=== PATIENT | female | born 1940 | race Caucasian/White ===

== ENCOUNTER → 2017-06-05 | Outpatient (CLI) | payer OTHER, MEDICAID ==
[~2017-06-05] MED LIST: ALDA25TA2; ALEVE; COENCAP; CORE6.25; FOLI1TAB; LISI20TA5; THERGRAN; TORS20TA2
[2017-06-05 15:58] LABS: BASO # 0.1 10^3/uL (0.0-0.2); BASO % 0.7 % (0.0-1.0); EOS # 0.2 10^3/uL (0.0-0.50); EOS % 2.7 % (0.0-3.0); IMMATURE GRANULOCYTE % 0.6 % (0-0); LYMPH # 2.2 10^3/uL (1.5-4.5); LYMPH % 25.8 % (24.0-44.0); MEAN CORPUSCULAR HEMOGLOBIN 29.7 pg (27.0-33.0); MEAN CORPUSCULAR HGB CONC 31.5 g/dl (32.0-36.5); MEAN CORPUSCULAR VOLUME 94.5 fl (80.0-96.0); MONO # 0.7 10^3/uL (0.0-0.8); MONO % 8.4 % (0.0-5.0); NEUTROPHILS # 5.3 10^3/uL (1.8-7.7); NEUTROPHILS % 61.8 % (36.0-66.0); PLATELET COUNT, AUTOMATED 208 10^3/uL (150-450); RED CELL DISTRIBUTION WIDTH 13.2 % (11.5-14.5); WHITE BLOOD COUNT 8.5 10^3/uL (4.0-10.0)
[2017-06-05 16:17] LABS: ALBUMIN 3.3 GM/DL (3.2-5.2); ALBUMIN/GLOBULIN RATIO 0.92 (1.00-1.93); BILIRUBIN,TOTAL 0.3 MG/DL (0.2-1.0); CALCIUM LEVEL 8.9 MG/DL (8.8-10.2); CREATININE FOR GFR 1.09 MG/DL (0.55-1.02); GLOMERULAR FILTRATION RATE 51.7 (>39); POTASSIUM SERUM 4.7 MEQ/L (3.5-5.1); TOTAL PROTEIN 6.9 GM/DL (6.4-8.2)
== END ==
LOC: M WUC 12:58
PROVIDERS: ATTEND Family Medicine
DX: I50.20 Unspecified systolic (congestive) heart failure (principal)

== ENCOUNTER → 2019-06-18 | Outpatient (REF) | payer OTHER, MEDICAID, MEDICARE ==
[2019-06-18 17:12] LABS: BASO # 0.1 10^3/uL (0.0-0.2); BASO % 0.6 % (0.0-1.0); EOS # 0.3 10^3/uL (0.0-0.5); HEMATOCRIT 41.5 % (36.0-47.0); HEMOGLOBIN 13.3 g/dl (12.0-15.5); LYMPH # 2.2 10^3/uL (1.5-5.0); LYMPH % 25.7 % (24.0-44.0); MEAN CORPUSCULAR HEMOGLOBIN 30.5 pg (27.0-33.0); MEAN CORPUSCULAR VOLUME 95.2 fl (80.0-96.0); MONO # 0.7 10^3/uL (0.0-0.8); MONO % 8.4 % (0.0-5.0); NEUTROPHILS # 5.2 10^3/uL (1.5-8.5); NEUTROPHILS % 61.8 % (36.0-66.0); PLATELET COUNT, AUTOMATED 233 10^3/uL (150-450); RED BLOOD COUNT 4.36 10^6/uL (4.00-5.40); WHITE BLOOD COUNT 8.4 10^3/uL (4.0-10.0)
[2019-06-18 17:53] LABS: ALBUMIN 3.5 GM/DL (3.2-5.2); BILIRUBIN,TOTAL 0.4 MG/DL (0.2-1.0); CREATININE FOR GFR 1.54 MG/DL (0.55-1.30); GLOMERULAR FILTRATION RATE 34.5 (>32); POTASSIUM SERUM 4.9 MEQ/L (3.5-5.1); TOTAL PROTEIN 7.3 GM/DL (6.4-8.2)
== END ==
LOC: M LABDRAW1 15:58
PROVIDERS: ATTEND Family Medicine
DX: I50.20 Unspecified systolic (congestive) heart failure (principal)

== ENCOUNTER 2021-04-06 21:01 | Inpatient (IN) | payer MEDICARE, MEDICAID ==
[~2021-04-06] VITALS: Ht 165.1 cm; Wt 83.1 kg
[2021-04-06] MEDS ORDERED: TORS10TA3 (21:27)
[2021-04-06] MEDS ORDERED: FOLI1TAB11 (21:27)
[2021-04-06] MEDS ORDERED: CARV6.25 (21:27)
[2021-04-06] MEDS ORDERED: LISI10TA22 (21:27)
[2021-04-06 22:51] LABS: BASO % 0.4 % (0.0-1.0); EOS # 0.2 10^3/uL (0.0-0.5); HEMOGLOBIN 13.2 g/dl (12.0-15.5); LYMPH # 1.7 10^3/uL (1.5-5.0); MEAN CORPUSCULAR HEMOGLOBIN 36.9 pg (27.0-33.0); MEAN CORPUSCULAR VOLUME 111.7 fl (80.0-96.0); MONO # 0.5 10^3/uL (0.0-0.8); MONO % 7.8 % (2.0-8.0); NEUTROPHILS # 4.3 10^3/uL (1.5-8.5); NEUTROPHILS % 63.1 % (36.0-66.0); RED BLOOD COUNT 3.58 10^6/uL (4.00-5.40); WHITE BLOOD COUNT 6.8 10^3/uL (4.0-10.0)
[2021-04-06 23:29] LABS: RSV AMPLIFICATION NEGATIVE (NEGATIVE)
--- NOTE | 2021-04-06 23:44 | REPVR ---
PROCEDURE INFORMATION: Exam: XR Chest Exam date and time: 04/06/2021 10:55 PM Age: 80 years old Clinical indication: Pain; Other: Not spcified; Additional info: Chest pain TECHNIQUE: Imaging protocol: XR of the chest. Views: 1 view. COMPARISON: No relevant prior studies available. FINDINGS: Limitations: Limited by patient's body habitus. Lungs: Dependent subsegmental pulmonary atelectasis. Pleural spaces: Unremarkable. No pleural effusion. No pneumothorax. Heart/Mediastinum: Mild cardiac enlargement. Bones/joints: Unremarkable. IMPRESSION: 1. Dependent subsegmental pulmonary atelectasis. 2. Mild cardiac enlargement. Electronically signed by: Ángel Zamorano On 04/06/2021 23:43:52 PM
[2021-04-07] VITALS (16 sets, daily range): BP systolic 114–201; BP diastolic 56–84
[2021-04-07] MEDS ORDERED: TORS10TA3 PO (00:05)
[2021-04-07] MEDS ORDERED: HOME MED LIST COMPLETE! XX SCH (00:05)
[2021-04-07] MEDS ORDERED: FOLI1TAB11 PO (00:05)
[2021-04-07] MEDS ORDERED: COMB0.2S OS (00:05)
[2021-04-07] MEDS ORDERED: CARV6.25 PO (00:05)
[2021-04-07] MEDS ORDERED: LISI10TA22 PO (00:05)
[2021-04-07] MEDS ORDERED: MURO5OIN OS (00:05)
[2021-04-07] MEDS ORDERED: PRED1SUS2 OS (00:05)
[2021-04-07 00:06] LABS: ALBUMIN 3.5 GM/DL (3.2-5.2); ALT/SGPT 15 U/L (12-78); BILIRUBIN,DIRECT < 0.1 MG/DL (0.0-0.2); BILIRUBIN,TOTAL 0.3 MG/DL (0.2-1.0); BLOOD UREA NITROGEN 37 MG/DL (7-18); CALCIUM LEVEL 8.8 MG/DL (8.8-10.2); CARBON DIOXIDE LEVEL 24 MEQ/L (21-32); CHLORIDE LEVEL 111 MEQ/L (98-107); CK-MB VALUE MASS < 1.0 NG/ML (<3.6); CPK CREATINE PHOSPHOKINASE 39 U/L (26-192); FREE T4 1.08 NG/DL (0.76-1.46); GLOMERULAR FILTRATION RATE 30.7 (>32); GLUCOSE, FASTING 85 MG/DL (70-100); LIPASE 218 U/L (73-393); MB/CK RELATIVE INDEX 2.56 (< OR =4); NT-PRO BNP 926 PG/ML (<450); POTASSIUM SERUM 5.6 MEQ/L (3.5-5.1); SODIUM LEVEL 142 MEQ/L (136-145); TOTAL PROTEIN 7.3 GM/DL (6.4-8.2); TROPONIN I 0.06 NG/ML (< 0.10)
--- NOTE | 2021-04-07 01:48 | HPEPDOC ---
[facility] Medical History & Physical Date of Admission Apr 07, 2021 Date of Service: Apr 07, 2021 History and Physical CHIEF COMPLAINT: Dizziness HISTORY OF PRESENT ILLNESS: 80-year-old female history of congestive heart failure, hypertension, chronic kidney disease who presents to the emergency department with her daughter complaining of dizziness on and off for the past several weeks. She says she feels dizzy as though she is going to pass out but she never actually lost consciousness any point nor had any falls. Upon arrival to the emergency department she was found to have bradycardia heart rate down in the 30s. She takes Coreg at home as well as eye drops which contain timolol. Patient denies any chest pain or palpitations and is shortness of breath denies fevers or chill denies nausea or vomiting she does endorse on review of systems a mild headache as well as dysuria. 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 Vazquez however she hasn't followed up with him in what her daughter believes to be more than 10 years. She states that she follows up with her primary care physician approximately every [address] Silva discussed her case with Dr. Fernandez who recommended admission and cardiac monitoring and holding off on her beta blockers. Patient will be admitted for symptomatic bradycardia to the ICU for close monitoring. When I saw the patient in the emergency department it appeared as though her heart rate had improved she was always between a heart rate of 45- 55 however on a few occasions she did drop to 37. PAST MEDICAL/SURGICAL HISTORY: Hypertension Congestive heart failure Chronic kidney disease Tension-type headaches Osteoarthritis of knees Cholecystectomy when she was 18 Multiple left foot surgeries due to broken toes Cataract surgery SOCIAL HISTORY: Denies alcohol use Continues to smoke 1 pack per day daily and has smoked for a very long time can't tell me exactly how long. Denies illicit drug use FAMILY HISTORY: Reviewed and none contributory to this admission ALLERGIES: Please see below. REVIEW OF SYSTEMS: 10 point review of systems complete all negative otherwise stated in HPI HOME MEDICATIONS: Please see below. PHYSICAL EXAMINATION: Constitutional: Awake and alert, in no apparent distress ENT: Sclera are clear. Mucosa is moist. Respiratory: Lungs CTA bilaterally. No respiratory distress. Cardiovascular: Slow heart rate no murmurs appreciated. Heart rate was 52 on the monitor. Gastrointestinal: Abdomen is soft, non distended, non tender, BS present. Musculoskeletal: No lower extremity edema. Neurologic: No focal neurological deficit. Mental Status: A&O x3, normal affect Skin: No visible rashes LABORATORY DATA: See below. IMAGING: See chart MICROBIOLOGY: Please see below. ASSESSMENT/PLAN 80-year-old female presents with dizziness found to have symptomatic bradycardia admitted to the ICU for close monitoring. # Bradycardia: Initially dizzy now asymptomatic. Dr Fernandez suggested holding all BBs and close monitoring. Admit to ICU with cardiac monitoring. Coreg and eye drops containing timolol stopped. PT eval once HR improves. Morning team to consider formal cardiology consult if HR doesn't improve without BB. Fu echo. ordered Magnesium level. Check TSH. # HTN: labile. Monitor closely. Lisinopril and coreg on hold. Gave her 1 dose amlodipine. Add medications/titrate as appropriate. # CKD: unclear if there is an JERONIMO vs progression of CKD. Repeat BMP in the morning. Hold lisinopril. Avoid nephrotoxins. # CHF: compensated. Resumed appropriate home meds. # Hyperkalemia: k5.6. Monitor. # Smoker: Counseled to quit. Nicotine patch. # Obesity: BMI 29.3. Complicates care. # DVT prophylaxis: Heparin A Yousef Hospitalist Vital Signs Vital Signs Date Time Temp Pulse Resp B/P (MAP) Pulse Ox O2 Delivery O2 Flow Rate FiO2 04/07/21 01:08 44 16 184/77 (112) 96 Room Air 04/06/21 21:03 99.0 Laboratory Data Labs 24H Laboratory Tests 2 04/06/21 22:41: Immature Granulocyte % (Auto) 0.7, Neutrophils (%) (Auto) 63.1, Lymphocytes (%) (Auto) 25.0, Monocytes (%) (Auto) 7.8, Eosinophils (%) (Auto) 3.0, Basophils (%) (Auto) 0.4, Neutrophils # (Auto) 4.3, Lymphocytes # (Auto) 1.7, Monocytes # (Auto) 0.5, Eosinophils # (Auto) 0.2, Basophils # (Auto) 0.0, Nucleated Red Blood Cells % (auto) 0.0, Coronavirus (COVID-19)(PCR) NEGATIVE, Influenza Type A (RT-PCR) NEGATIVE, Influenza Type B (RT-PCR) NEGATIVE, Respiratory Syncytial Virus (PCR) NEGATIVE 04/06/21 23:22: Urine Color YELLOW, Urine Appearance HAZY, Urine pH 5.0, Urine Specific [place] 1.010, Urine Protein NEGATIVE, Urine Glucose (UA) NEGATIVE, Urine Ketones NEGATIVE, Urine Blood 1+H, Urine Nitrite NEGATIVE, Urine Bilirubin NEGATIVE, Urine Urobilinogen 0.2, Urine Leukocyte Esterase 2+H, Urine WBC (Auto) 9H, Urine RBC (Auto) 2, Urine Hyaline Casts (Auto) 0, Urine Bacteria (Auto) 2+H, Urine Squamous Epithelial Cells 1, Urine Mucus (Auto) SMALL, Urine Sperm (Auto) , Anion Gap 7L, Glomerular Filtration Rate 30.7L, Calcium Level 8.8, Total Bilirubin 0.3, Direct Bilirubin < 0.1, Aspartate Amino Transf (AST/SGOT) 13, Alanine Aminotransferase (ALT/SGPT) 15, Alkaline Phosphatase 86, Total Creatine Kinase 39, Creatine Kinase MB < 1.0, Creatine Kinase MB Relative Index 2.56, Troponin I 0.06, FH-Bih-G-Type Natriuretic Peptide 926H, Total Protein 7.3, Albumin 3.5, Albumin/Globulin Ratio 0.9L, Lipase 218, Thyroid Stimulating Horm one (TSH) 1.050, Free Thyroxine 1.08 CBC/BMP Laboratory Tests 04/06/21 22:41 04/06/21 23:22 Microbiology Microbiology 04/06/21 Urine Culture, Received Pending Home Medications Scheduled Brimonidine Tartrate/Timolol (Combigan 0.2%-0.5% Eye Drops) 5 Ml Drops, 1 DROP OS BID Carvedilol (Carvedilol) 6.25 Mg Tablet, 6.25 MG PO BID Folic Acid (Folic Acid) 1 Mg Tablet, 1 MG PO DAILY Lisinopril (Lisinopril) 10 Mg Tablet, 5 MG PO QHS Prednisolone Acetate (Pred Forte 1% Opth Susp) 5 Ml Drops.susp, 1 DROP OS QID Sodium Chloride (Elise-128) 5% Oint...g., 1 DOSE OS QHS Torsemide (Torsemide) 10 Mg Tablet, 10 MG PO DAILY Allergies Coded Allergies: No Known Allergies (Verified , 04/06/21) GORGE HARRIS MD Apr 07, 2021 01:48
[2021-04-07] MEDS ORDERED: NICOTINE 21MG/24HR 1 EA TRANSDERMAL TD ONE (02:00)
[2021-04-07] MEDS ORDERED: amLODIPine 5 MG TAB PO ONE (02:15)
[2021-04-07 04:24] LABS: MAGNESIUM LEVEL 2.5 MG/DL (1.8-2.4)
[2021-04-07 05:30] LABS: HEMATOCRIT 37.7 % (36.0-47.0); HEMOGLOBIN 12.4 g/dl (12.0-15.5); MEAN CORPUSCULAR HEMOGLOBIN 36.4 pg (27.0-33.0); MEAN CORPUSCULAR HGB CONC 32.9 g/dl (32.0-36.5); MEAN CORPUSCULAR VOLUME 110.6 fl (80.0-96.0); PLATELET COUNT, AUTOMATED 110 10^3/uL (150-450); RED BLOOD COUNT 3.41 10^6/uL (4.00-5.40); WHITE BLOOD COUNT 6.4 10^3/uL (4.0-10.0)
[2021-04-07 06:02] LABS: ALBUMIN 3.4 GM/DL (3.2-5.2); BILIRUBIN,TOTAL 0.3 MG/DL (0.2-1.0); CALCIUM LEVEL 8.7 MG/DL (8.8-10.2); CREATININE FOR GFR 1.58 MG/DL (0.55-1.30); GLOMERULAR FILTRATION RATE 33.4 (>32); MAGNESIUM LEVEL 2.5 MG/DL (1.8-2.4); TOTAL PROTEIN 6.4 GM/DL (6.4-8.2)
--- NOTE | 2021-04-07 06:03 | ECGEPIP ---
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
[2021-04-07] MEDS ORDERED: HEPARIN SOD (PORCINE) 5000UNITS/ML 1ML VIAL/SYRINGE SC SCH (09:00)
[2021-04-07] MEDS ORDERED: NICOTINE 14 MG/24 HR TRANSDERMAL TD ONE (09:15)
[2021-04-07] MEDS: TORSEMIDE 10 MG TABLET PO SCH (09:27)
[2021-04-07] MEDS: FOLIC ACID 1 MG TAB PO SCH (12:23)
--- NOTE | 2021-04-07 13:14 | ECGEPIP ---
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
[2021-04-07] MEDS ORDERED: lisinopriL 5 MG TAB PO SCH (21:00)
[2021-04-08] VITALS: BP 170/77
[2021-04-08 04:00] VITALS: BP 157/68
[2021-04-08 04:50] LABS: HEMATOCRIT 36.8 % (36.0-47.0); MEAN CORPUSCULAR HEMOGLOBIN 36.1 pg (27.0-33.0); MEAN CORPUSCULAR HGB CONC 32.6 g/dl (32.0-36.5); MEAN CORPUSCULAR VOLUME 110.8 fl (80.0-96.0); PLATELET COUNT, AUTOMATED 109 10^3/uL (150-450); RED BLOOD COUNT 3.32 10^6/uL (4.00-5.40); WHITE BLOOD COUNT 5.2 10^3/uL (4.0-10.0)
[2021-04-08 05:12] LABS: CALCIUM LEVEL 8.2 MG/DL (8.8-10.2); CREATININE FOR GFR 1.91 MG/DL (0.55-1.30); GLOMERULAR FILTRATION RATE 26.8 (>32); MAGNESIUM LEVEL 2.4 MG/DL (1.8-2.4); POTASSIUM SERUM 5.2 MEQ/L (3.5-5.1)
[2021-04-08 07:26] VITALS: BP 167/77
[2021-04-08] MEDS: TORSEMIDE 10 MG TABLET PO SCH (08:25)
[2021-04-08] MEDS: FOLIC ACID 1 MG TAB PO SCH (08:25)
[2021-04-08] MEDS ORDERED: NICOTINE 14 MG/24 HR TRANSDERMAL TD SCH (09:00)
[2021-04-08] MEDS ORDERED: AMLO10TA PO (11:17)
[2021-04-08] MEDS ORDERED: ISOS10TAB PO (11:20)
[2021-04-08] MEDS ORDERED: SELF1KIT MC (11:21)
[2021-04-08 17:07] LABS: Lyme Disease IgG/IgM Antibodie <0.91 ISR (0.00-0.90); Lyme Disease IgM Ab Quantitati <0.80 index (0.00-0.79)
--- NOTE | 2021-04-09 08:22 | DSES ---
DISCHARGE SUMMARY DATE OF ADMISSION: 04/06/2021 DATE OF DISCHARGE: 04/08/2021 PRIMARY DISCHARGE DIAGNOSIS: 1. Symptomatic bradycardia secondary to Timolol and Coreg induced bradycardia. 2. Congestive heart failure, compensated. 3. Chronic kidney disease Stage III. 4. Hypertension. 5. Tension headaches. 6. Recent cataract surgery with Timolol induced bradycardia. 7. Chronic osteoarthritis of bilateral knees. DISCHARGE MEDICATIONS: 1. Folic acid 1 mg daily. 2. Lisinopril was discontinued due to hyperkalemia. 3. Prednisone eyedrops OS q.i.d. 4. Sodium chloride eyedrops OS, q.h.s. 5. Torsemide 10 daily. 6. Norvasc 10 mg daily. DISCHARGE INSTRUCTIONS: Patient was instructed not to take her Coreg as well as her Timolol eyedrops secondary to bradycardia with complaints of dizziness due to Coreg and Timolol. Primary care physician appointment within five days of discharge for adjustment of blood pressure medications. Patient is to see her promotions assistant sales marketing to ask for alternative eyedrops due to Timolol induced bradycardia requiring hospitalization. HOSPITAL COURSE: This is an 80-year-old female with a history of hypertension on chronic Coreg who recently had eye surgery and was given Timolol eyedrops, presented with symptomatic bradycardia with a heart rate into the 35 to 45 range and complaints of dizziness. Per Emergency Room physician, Dr. Vazquez discussed the case with Dr. Johnson, township supervisor on-call. Recommendations were to admit the patient for cardiac monitoring, hold off on Coreg and hold off on the patient's Timolol. While sleeping, the patient's heart rate does decrease down to 36 to 39. She had stable vital signs with blood pressure of 145 to 160 systolic and no syncopal episodes. Patient's cardiac markers were negative. She was initially hyperkalemic with potassium of 5.6 which was treated with Kayexalate. She remained with Stage III to IV renal failure. The patient was instructed to see her primary care physician and promotions assistant sales marketing within five days of hospital discharge. PHYSICAL EXAMINATION ON DISCHARGE: Temperature is 96.9, pulse 46, respiratory rate 16, blood pressure is 167/77, 96% on room air. In general, patient is awake, alert and oriented to herself, answering questions appropriately. No distress. Face is symmetric. Lungs are clear to auscultation. No wheezing. Heart is S1 and S2, sinus bradycardia. Abdomen is soft, nontender and nondistended. Positive bowel sounds. Extremities: No cyanosis or clubbing. LABORATORY DATA: See below. TIME SPENT ON DISCHARGE: 30 minutes MTDD
== END 2021-04-08 09:41 | disposition home or self-care (01) | DRG 309 ==
LOC: M ED 21:01 → M ED INP 21:02 → M ICU 04-07 03:05
PROVIDERS: ADMIT Family Medicine; ATTEND General Practice
DX: R00.1 Bradycardia, unspecified (principal); I13.0 Hypertensive heart and chronic kidney disease with heart failure and stage 1 through stage 4 chronic kidney disease, or unspecified chronic kidney disease; I50.9 Heart failure, unspecified; N18.30 Chronic kidney disease, stage 3 unspecified; M17.0 Bilateral primary osteoarthritis of knee; G44.209 Tension-type headache, unspecified, not intractable; Z98.49 Cataract extraction status, unspecified eye; Z90.49 Acquired absence of other specified parts of digestive tract; F17.200 Nicotine dependence, unspecified, uncomplicated; Z20.822 Contact with and (suspected) exposure to COVID-19; Z79.899 Other long term (current) drug therapy; T44.6X5A Adverse effect of alpha-adrenoreceptor antagonists, initial encounter; T44.7X5A Adverse effect of beta-adrenoreceptor antagonists, initial encounter

== ENCOUNTER 2021-06-17 14:10 | Emergency (ER) | payer MEDICARE, MEDICAID ==
[~2021-06-17 14:10] MED LIST changes: +AMLO10TA PO; +CARV6.25; +CARV6.25 PO; +COMB0.2S OS; +FOLI1TAB11; +FOLI1TAB11 PO; +ISOS10TAB PO; +LISI10TA22; +LISI10TA22 PO; +MURO5OIN OS; +PRED1SUS2 OS; +SELF1KIT MC; +TORS10TA3; +TORS10TA3 PO
--- NOTE | 2021-06-17 15:49 | REP ---
INDICATION: Altered Mental Status. COMPARISON: Multiple the latest 04/06/2021 also portable TECHNIQUE: Portable FINDINGS: The technique utilized in obtaining the radiograph has magnified the cardiac silhouette and accentuated the interstitial markings. There is cardiomegaly accentuated by technique status quo. Subtle curvilinear densities have developed in the right lung base. In the left lower lobe there is a discoid opacity. The lung campbell are otherwise clear and unchanged. There is no change in the osseous structures. IMPRESSION: 1. Cardiomegaly 2. Likely bilateral subsegmental atelectatic changes. <Electronically signed by Dimitris Daniels > 06/17/21 [id number]
[2021-06-17 16:52] LABS: HEMATOCRIT 40.4 % (36.0-47.0); HEMOGLOBIN 13.2 g/dl (12.0-15.5); MEAN CORPUSCULAR HEMOGLOBIN 34.7 pg (27.0-33.0); MEAN CORPUSCULAR HGB CONC 32.7 g/dl (32.0-36.5); MEAN CORPUSCULAR VOLUME 106.3 fl (80.0-96.0); PLATELET COUNT, AUTOMATED 181 10^3/uL (150-450); WHITE BLOOD COUNT 8.2 10^3/uL (4.0-10.0)
--- NOTE | 2021-06-17 16:54 | REP ---
INDICATION: confusion COMPARISON: None. TECHNIQUE: Axial noncontrast images from the skull base to the thoracic inlet with coronal reformations. This CT examination was performed using the following dose reduction techniques: Automated exposure control, adjustment of mA and/or kv according to the patient's size, and use of iterative reconstruction technique. FINDINGS: Atrophy with periventricular leukomalacia and microvascular ischemic changes are appreciated. Encephalomalacia involving the right parieto-occipital lobe consistent with old infarction. The ventricles and sulci are symmetric. Sandoval-white differentiation is maintained. There is no evidence for acute intracranial hemorrhage, mass/mass effect, pathology or infarction. No extra-axial fluid collection. Calvarium is intact. Paranasal sinuses and mastoid air cells are clear. IMPRESSION: Atrophy and microvascular ischemic changes. 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 No acute intracranial hemorrhage, infarction, or mass/mass effect. <Electronically signed by Rocky Bailey > 06/17/21 [id number]
[2021-06-17 17:01] LABS: BILIRUBIN,TOTAL 0.3 MG/DL (0.2-1.0); CALCIUM LEVEL 7.9 MG/DL (8.8-10.2); CREATININE FOR GFR 1.69 MG/DL (0.55-1.30); GLOMERULAR FILTRATION RATE 30.8 (>32); POTASSIUM SERUM 5.3 MEQ/L (3.5-5.1); THYROID STIMULATING HORMONE 0.693 uIU/ML (0.358-3.740); TOTAL PROTEIN 6.6 GM/DL (6.4-8.2)
[2021-06-17 17:52] VITALS: BP 150/93
--- NOTE | 2021-06-18 08:21 | ECGEPIP ---
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
== END 2021-06-17 18:03 | disposition home or self-care (01) ==
LOC: M ED 14:10
DX: R41.0 Disorientation, unspecified (principal); Z86.73 Personal history of transient ischemic attack (TIA), and cerebral infarction without residual deficits; I45.19 Other right bundle-branch block; I51.7 Cardiomegaly; I50.9 Heart failure, unspecified; I10 Essential (primary) hypertension; F17.200 Nicotine dependence, unspecified, uncomplicated; Z79.899 Other long term (current) drug therapy

== ENCOUNTER 2021-07-27 10:34 | Observation (INO) | payer MEDICARE, MEDICAID ==
[~2021-07-27] VITALS: Ht 165.1 cm; Wt 79.3 kg
[2021-07-27 11:15] LABS: BASO % 0.3 % (0.0-1.0); EOS # 0.1 10^3/uL (0.0-0.5); EOS % 1.7 % (0.0-3.0); HEMATOCRIT 37.7 % (36.0-47.0); HEMOGLOBIN 12.6 g/dl (12.0-15.5); LYMPH # 1.4 10^3/uL (1.5-5.0); LYMPH % 20.8 % (24.0-44.0); MEAN CORPUSCULAR HEMOGLOBIN 34.1 pg (27.0-33.0); MEAN CORPUSCULAR HGB CONC 33.4 g/dl (32.0-36.5); MEAN CORPUSCULAR VOLUME 102.2 fl (80.0-96.0); MONO # 0.3 10^3/uL (0.0-0.8); MONO % 4.9 % (2.0-8.0); NEUTROPHILS # 4.6 10^3/uL (1.5-8.5); NEUTROPHILS % 71.5 % (36.0-66.0); PLATELET COUNT, AUTOMATED 146 10^3/uL (150-450); RED BLOOD COUNT 3.69 10^6/uL (4.00-5.40); WHITE BLOOD COUNT 6.5 10^3/uL (4.0-10.0)
[2021-07-27 11:26] LABS: INR 1.04
[2021-07-27] MEDS: NS 1,000 ML IV SCH ×2 (11:29→21:51)
[2021-07-27] MEDS ORDERED: ISOS1TAB12 PO (11:47)
[2021-07-27] MEDS ORDERED: AMLO1TAB25 PO (11:47)
[2021-07-27] MEDS ORDERED: HOME MED LIST COMPLETE! XX SCH (11:50)
[2021-07-27 11:51] LABS: ACETAMINOPHEN LEVEL < 2.0 UG/ML (10.0-30.0); ALBUMIN 3.3 GM/DL (3.2-5.2); ALT/SGPT 12 U/L (12-78); BILIRUBIN,DIRECT 0.2 MG/DL (0.0-0.2); BILIRUBIN,TOTAL 0.5 MG/DL (0.2-1.0); ETHYL ALCOHOL (ETHANOL) < 0.003 % (0.000-0.010); LIPASE 123 U/L (73-393); NT-PRO BNP 460 PG/ML (<450); SALICYLATE LEVEL < 1.7 MG/DL (5.0-30.0); TOTAL PROTEIN 6.4 GM/DL (6.4-8.2)
[2021-07-27 12:05] LABS: RSV AMPLIFICATION NEGATIVE (NEGATIVE)
[2021-07-27 12:05] LABS: ABG HCO3 18.5 MEQ/L (22.0-26.0); ABG O2 SATURATION 98.1 % (95.0-99.0); ABG PARTIAL PRESSURE CO2 33.4 mmHg (35.0-45.0); ABG PARTIAL PRESSURE O2 111.3 mmHg (75.0-100.0); ABG STANDARD HCO3 19.6 MEQ/L (22.0-26.0); ABG TOTAL CO2 19.6 MEQ/L (23.0-31.0); ABG pH (ARTERIAL) 7.362 UNITS (7.350-7.450)
[2021-07-27 14:31] LABS: FERRITIN 109 NG/ML (8-252); IRON (FE) 64 UG/DL (50-170); PERCENT SATURATION 24.3 % (13.2-45.0); TOTAL IRON BINDING CAPACITY 263 UG/DL (250-450)
[2021-07-27 14:47] LABS: FOLATE > 24.0 NG/ML (>5.4); VITAMIN B12 LEVEL 79 PG/ML (247-911)
[2021-07-27 17:55] VITALS: BP 142/80
[2021-07-27 20:58] VITALS: BP 138/76
[2021-07-27] MEDS: ISOSORBIDE MONONITRATE 10MG TABLET PO SCH (21:51)
[2021-07-28 05:48] VITALS: BP 135/63
[2021-07-28 06:45] LABS: HEMATOCRIT 31.1 % (36.0-47.0); MEAN CORPUSCULAR HEMOGLOBIN 33.7 pg (27.0-33.0); MEAN CORPUSCULAR HGB CONC 33.1 g/dl (32.0-36.5); MEAN CORPUSCULAR VOLUME 101.6 fl (80.0-96.0); PLATELET COUNT, AUTOMATED 134 10^3/uL (150-450); RED BLOOD COUNT 3.06 10^6/uL (4.00-5.40); WHITE BLOOD COUNT 5.9 10^3/uL (4.0-10.0)
[2021-07-28 06:50] LABS: HEMOGLOBIN 10.3 g/dl (12.0-15.5)
[2021-07-28 07:01] LABS: ALBUMIN 2.7 GM/DL (3.2-5.2); BILIRUBIN,TOTAL 0.5 MG/DL (0.2-1.0); CALCIUM LEVEL 8.2 MG/DL (8.8-10.2); CREATININE FOR GFR 1.45 MG/DL (0.55-1.30); GLOMERULAR FILTRATION RATE 36.8 (>32); MAGNESIUM LEVEL 2.3 MG/DL (1.8-2.4); PHOSPHORUS LEVEL 3.5 MG/DL (2.5-4.9); POTASSIUM SERUM 4.1 MEQ/L (3.5-5.1); TOTAL PROTEIN 5.9 GM/DL (6.4-8.2)
[2021-07-28] MEDS: NS 1,000 ML IV SCH ×3 (07:05→23:11)
[2021-07-28 09:00] VITALS: BP 135/63
[2021-07-28 10:00] VITALS: BP 135/68
[2021-07-28 10:35] VITALS: BP_SYST 101; BP_SYST 129; BP_SYST 138; BP_DIAS 53; BP_DIAS 66; BP_DIAS 74
[2021-07-28] MEDS: ENOXAPARIN 30MG/0.3ML SYRINGE (J1650 PER 10MG) SC SCH (10:36)
[2021-07-28] MEDS: FOLIC ACID 1 MG TAB PO SCH (10:37)
[2021-07-28] MEDS: ISOSORBIDE MONONITRATE 10MG TABLET PO SCH (10:37)
[2021-07-28] MEDS ORDERED: NS 500 ML IV ONE (11:10)
[2021-07-28 14:00] VITALS: BP 142/69
[2021-07-28 22:00] VITALS: BP_SYST 130; BP_SYST 133; BP_SYST 140; BP_DIAS 61; BP_DIAS 62; BP_DIAS 67
[2021-07-28] MEDS: cefTRIAXone SOD 1 GM in D5W MINI-BAG PLUS 50 ML IV SCH (23:11)
[2021-07-29 02:00] VITALS: BP 125/73
[2021-07-29 06:00] VITALS: BP 134/77
[2021-07-29 06:38] LABS: HEMOGLOBIN 10.8 g/dl (12.0-15.5); MEAN CORPUSCULAR HEMOGLOBIN 34.2 pg (27.0-33.0); MEAN CORPUSCULAR HGB CONC 32.7 g/dl (32.0-36.5); MEAN CORPUSCULAR VOLUME 104.4 fl (80.0-96.0); PLATELET COUNT, AUTOMATED 123 10^3/uL (150-450); RED BLOOD COUNT 3.16 10^6/uL (4.00-5.40); WHITE BLOOD COUNT 4.9 10^3/uL (4.0-10.0)
[2021-07-29 07:07] LABS: CALCIUM LEVEL 7.8 MG/DL (8.8-10.2); CREATININE FOR GFR 1.28 MG/DL (0.55-1.30); GLOMERULAR FILTRATION RATE 42.5 (>32); MAGNESIUM LEVEL 2.2 MG/DL (1.8-2.4); POTASSIUM SERUM 4.2 MEQ/L (3.5-5.1)
[2021-07-29] MEDS ORDERED: amLODIPine 5 MG TAB PO SCH (09:00)
[2021-07-29] MEDS: FOLIC ACID 1 MG TAB PO SCH (10:40)
[2021-07-29] MEDS: ENOXAPARIN 30MG/0.3ML SYRINGE (J1650 PER 10MG) SC SCH (10:40)
[2021-07-29] MEDS: lisinopriL 5 MG TAB PO SCH (10:40)
[2021-07-29 14:00] VITALS: BP 152/90
[2021-07-29 22:00] VITALS: BP 160/90
[2021-07-29] MEDS: cefTRIAXone SOD 1 GM in D5W MINI-BAG PLUS 50 ML IV SCH (22:11)
[2021-07-30 06:00] VITALS: BP 148/82
[2021-07-30] MEDS: ENOXAPARIN 30MG/0.3ML SYRINGE (J1650 PER 10MG) SC SCH (09:17)
[2021-07-30] MEDS: FOLIC ACID 1 MG TAB PO SCH (09:17)
[2021-07-30 09:18] VITALS: BP 168/76
[2021-07-30] MEDS: lisinopriL 5 MG TAB PO SCH (09:18)
[2021-07-30] MEDS ORDERED: LISI20TA33 PO (11:53)
[2021-07-30 11:55] VITALS: BP 147/98
[2021-07-30] MEDS ORDERED: B-12100010 PO (12:07)
[2021-07-30] MEDS ORDERED: LISI10TA22 PO (12:08)
[2021-07-30] MEDS ORDERED: BACTDSTA PO (12:11)
[2021-07-30] MEDS ORDERED: TORSEMIDE 10 MG TABLET PO SCH (18:00)
[2021-07-31] MEDS ORDERED: BACTRIM 160MG/800MG DS TAB PO SCH (09:00)
== END 2021-07-30 13:41 | disposition home or self-care (01) ==
LOC: M ED 10:34 → M ED INP 13:37 → M MSPAV 17:50
PROVIDERS: ADMIT Internal Medicine; ATTEND Internal Medicine
DX: R55 Syncope and collapse (principal); I10 Essential (primary) hypertension; I50.9 Heart failure, unspecified; N39.0 Urinary tract infection, site not specified; N18.9 Chronic kidney disease, unspecified; D64.9 Anemia, unspecified; Z79.899 Other long term (current) drug therapy
CPT/HCPCS: 36415; 36600; 70450; 70551; 71045; 72125; 80047; 80048; 80053; 80076; 80143; 81001; 82077; 82140; 82607; 82728; 82746; 82803; 83550; 83605; 83690; 83735; 83880; 84100; 84439; 84443; 84484; 85025; 85027; 85610; 85730; 87040; 87088; 87186; 87631; 93005; 93041; 96361; 96365; 96366; 96372; 97116; 97161; 97530; 99285; G0378; J0696; J1650

== ENCOUNTER 2022-01-26 14:31 | Inpatient (IN) | payer MEDICARE, MEDICAID ==
[~2022-01-26] VITALS: Ht 167.6 cm; Wt 75.0 kg
[~2022-01-26 14:31] MED LIST changes: +AMLO1TAB25 PO; +B-12100010 PO; +BACTDSTA PO; +ISOS1TAB12 PO; +LISI20TA33 PO
[2022-01-26] MEDS ORDERED: QUET1TAB17 PO (14:54)
[2022-01-26 15:45] LABS: BASO # 0.1 10^3/uL (0.0-0.2); BASO % 0.4 % (0.0-1.0); EOS # 0.1 10^3/uL (0.0-0.5); HEMATOCRIT 41.3 % (36.0-47.0); HEMOGLOBIN 13.5 g/dl (12.0-15.5); LYMPH # 1.5 10^3/uL (1.5-5.0); MEAN CORPUSCULAR HEMOGLOBIN 30.1 pg (27.0-33.0); MEAN CORPUSCULAR HGB CONC 32.7 g/dl (32.0-36.5); MONO # 1.2 10^3/uL (0.0-0.8); MONO % 8.3 % (2.0-8.0); NEUTROPHILS # 10.9 10^3/uL (1.5-8.5); NEUTROPHILS % 78.8 % (36.0-66.0); PLATELET COUNT, AUTOMATED 214 10^3/uL (150-450); RED BLOOD COUNT 4.49 10^6/uL (4.00-5.40); WHITE BLOOD COUNT 13.8 10^3/uL (4.0-10.0)
[2022-01-26 16:21] LABS: ACETAMINOPHEN LEVEL < 2.0 UG/ML (10.0-30.0); ALBUMIN 3.3 GM/DL (3.2-5.2); ALT/SGPT 12 U/L (12-78); BILIRUBIN,DIRECT 0.1 MG/DL (0.0-0.2); BILIRUBIN,TOTAL 0.4 MG/DL (0.2-1.0); BLOOD UREA NITROGEN 24 MG/DL (7-18); CALCIUM LEVEL 9.4 MG/DL (8.8-10.2); CARBON DIOXIDE LEVEL 22 MEQ/L (21-32); CHLORIDE LEVEL 110 MEQ/L (98-107); CREATININE FOR GFR 1.77 MG/DL (0.55-1.30); ETHYL ALCOHOL (ETHANOL) < 0.003 % (0.000-0.010); GLOMERULAR FILTRATION RATE 29.2 (>32); GLUCOSE, FASTING 94 MG/DL (70-100); POTASSIUM SERUM 4.3 MEQ/L (3.5-5.1); SALICYLATE LEVEL 4.9 MG/DL (5.0-30.0); SODIUM LEVEL 142 MEQ/L (136-145); THYROID STIMULATING HORMONE 0.775 uIU/ML (0.358-3.740); TOTAL PROTEIN 7.1 GM/DL (6.4-8.2)
[2022-01-26 16:21] LABS: RSV AMPLIFICATION NEGATIVE (NEGATIVE)
[2022-01-26 16:26] LABS: OSMOLALITY SERUM 293 MOSM/KG (280-301)
[2022-01-26 17:21] LABS: AMPHETAMINES LEVEL URINE NEGATIVE (NEGATIVE); BARBITURATES URINE NEGATIVE (NEGATIVE); BENZODIAZEPINES URINE NEGATIVE (NEGATIVE); CANNABINOIDS URINE NEGATIVE (NEGATIVE); COCAINE METABOLITE URINE NEGATIVE (NEGATIVE); METHADONE URINE NEGATIVE (NEGATIVE); OPIATES URINE NEGATIVE (NEGATIVE); PHENCYCLIDINE URINE NEGATIVE (NEGATIVE)
[2022-01-26] MEDS ORDERED: CEFD300C PO (17:48)
[2022-01-26] MEDS: CEFDINIR 300 MG CAP (OMNICEF) PO ONE ×2 (17:59→18:02)
[2022-01-26] MEDS ORDERED: CEFDINIR 250 MG/5 ML 60ML SUSP BTL PO ONE (18:05)
[2022-01-26] MEDS ORDERED: CEFD250S26 PO (18:06)
[2022-01-26] MEDS ORDERED: LISI5TAB11 PO (20:11)
[2022-01-26] MEDS ORDERED: HOME MED LIST COMPLETE! XX SCH (20:15)
[2022-01-26] MEDS ORDERED: MOM 30ML SUSPENSION UDC PO PRN (20:25)
[2022-01-26] MEDS ORDERED: MAALOX 30 ML SUSP *UDC PO PRN (20:25)
[2022-01-26] MEDS ORDERED: ACETAMINOPHEN TAB 650MG DOSE (2X325MG) PO PRN (20:25)
[2022-01-26] MEDS ORDERED: NS 1,000 ML IV SCH (20:25)
[2022-01-26 20:28] LABS: CK-MB VALUE MASS 5.8 NG/ML (<3.6); MB/CK RELATIVE INDEX 6.59 (< OR =4)
[2022-01-26] MEDS ORDERED: ARIC1TAB PO (20:54)
[2022-01-26] MEDS ORDERED: VITA500T41 PO (20:54)
[2022-01-26] MEDS ORDERED: TORS10TA3 PO (20:54)
[2022-01-26] MEDS: amLODIPine 5 MG TAB PO SCH (22:07)
[2022-01-26] MEDS: QUEtiapine FUMARATE 25 MG TAB PO SCH (22:08)
[2022-01-26 22:29] LABS: CK-MB VALUE MASS 5.7 NG/ML (<3.6); MB/CK RELATIVE INDEX 6.63 (< OR =4)
[2022-01-27 05:44] LABS: BASO # 0.1 10^3/uL (0.0-0.2); BASO % 0.6 % (0.0-1.0); EOS # 0.2 10^3/uL (0.0-0.5); EOS % 2.5 % (0.0-3.0); HEMATOCRIT 37.7 % (36.0-47.0); HEMOGLOBIN 11.9 g/dl (12.0-15.5); LYMPH # 1.5 10^3/uL (1.5-5.0); LYMPH % 18.8 % (24.0-44.0); MEAN CORPUSCULAR HEMOGLOBIN 29.3 pg (27.0-33.0); MEAN CORPUSCULAR HGB CONC 31.6 g/dl (32.0-36.5); MEAN CORPUSCULAR VOLUME 92.9 fl (80.0-96.0); MONO # 0.9 10^3/uL (0.0-0.8); MONO % 11.4 % (2.0-8.0); NEUTROPHILS # 5.4 10^3/uL (1.5-8.5); NEUTROPHILS % 66.2 % (36.0-66.0); PLATELET COUNT, AUTOMATED 176 10^3/uL (150-450); RED BLOOD COUNT 4.06 10^6/uL (4.00-5.40); WHITE BLOOD COUNT 8.1 10^3/uL (4.0-10.0)
[2022-01-27 06:00] VITALS: BP_SYST 126; BP_SYST 150; BP_DIAS 87; BP_DIAS 92
[2022-01-27 06:15] LABS: ALBUMIN 2.8 GM/DL (3.2-5.2); BILIRUBIN,TOTAL 0.4 MG/DL (0.2-1.0); CALCIUM LEVEL 8.7 MG/DL (8.8-10.2); CREATININE FOR GFR 1.49 MG/DL (0.55-1.30); GLOMERULAR FILTRATION RATE 35.7 (>32); MAGNESIUM LEVEL 2.5 MG/DL (1.8-2.4); POTASSIUM SERUM 4.8 MEQ/L (3.5-5.1)
[2022-01-27] MEDS: CYANOCOBALAMIN 500 MCG TAB PO SCH (09:00)
[2022-01-27] MEDS: HEPARIN SOD (PORCINE) 5000UNITS/ML 1ML VIAL/SYRINGE SC SCH ×2 (09:00→20:17)
[2022-01-27] MEDS: cefTRIAXone SOD 1 GM in D5W MINI-BAG PLUS 50 ML IV SCH (09:40)
[2022-01-27] MEDS: FOLIC ACID 1 MG TAB PO SCH (09:48)
[2022-01-27] MEDS: amLODIPine 5 MG TAB PO SCH (09:49)
[2022-01-27] MEDS ORDERED: OLANZapine INTRAMUSCULAR 10MG VIAL IM ONE (11:15)
[2022-01-27 14:00] VITALS: BP 138/70
[2022-01-27] MEDS: QUEtiapine FUMARATE 25 MG TAB PO SCH ×2 (19:53→20:17)
[2022-01-27] MEDS: DONEPEZIL 5 MG TAB PO SCH ×2 (19:53→20:17)
[2022-01-27] MEDS: OLANZapine INTRAMUSCULAR 10MG VIAL IM PRN (22:12)
[2022-01-28 06:26] LABS: HEMATOCRIT 37.7 % (36.0-47.0); HEMOGLOBIN 11.9 g/dl (12.0-15.5); MEAN CORPUSCULAR HEMOGLOBIN 29.4 pg (27.0-33.0); MEAN CORPUSCULAR HGB CONC 31.6 g/dl (32.0-36.5); MEAN CORPUSCULAR VOLUME 93.1 fl (80.0-96.0); PLATELET COUNT, AUTOMATED 150 10^3/uL (150-450); RED BLOOD COUNT 4.05 10^6/uL (4.00-5.40); WHITE BLOOD COUNT 7.2 10^3/uL (4.0-10.0)
[2022-01-28 06:39] LABS: CALCIUM LEVEL 8.7 MG/DL (8.8-10.2); CREATININE FOR GFR 1.38 MG/DL (0.55-1.30); POTASSIUM SERUM 4.8 MEQ/L (3.5-5.1)
[2022-01-28] MEDS: HEPARIN SOD (PORCINE) 5000UNITS/ML 1ML VIAL/SYRINGE SC SCH ×2 (09:12→21:00)
[2022-01-28] MEDS: cefTRIAXone SOD 1 GM in D5W MINI-BAG PLUS 50 ML IV SCH (09:12)
[2022-01-28] MEDS: CYANOCOBALAMIN 500 MCG TAB PO SCH (09:13)
[2022-01-28] MEDS: FOLIC ACID 1 MG TAB PO SCH (09:13)
[2022-01-28] MEDS: amLODIPine 5 MG TAB PO SCH (09:14)
[2022-01-28] MEDS: OLANZapine INTRAMUSCULAR 10MG VIAL IM PRN (16:40)
[2022-01-28 20:00] VITALS: BP 111/84
[2022-01-28] MEDS: DONEPEZIL 5 MG TAB PO SCH (23:52)
[2022-01-28] MEDS: QUEtiapine FUMARATE 25 MG TAB PO SCH (23:53)
[2022-01-29 05:41] VITALS: BP 113/80
[2022-01-29 08:08] LABS: HEMATOCRIT 37.3 % (36.0-47.0); HEMOGLOBIN 11.9 g/dl (12.0-15.5); MEAN CORPUSCULAR HEMOGLOBIN 29.8 pg (27.0-33.0); MEAN CORPUSCULAR HGB CONC 31.9 g/dl (32.0-36.5); MEAN CORPUSCULAR VOLUME 93.3 fl (80.0-96.0); PLATELET COUNT, AUTOMATED 180 10^3/uL (150-450); WHITE BLOOD COUNT 5.4 10^3/uL (4.0-10.0)
[2022-01-29 08:31] LABS: CALCIUM LEVEL 9.1 MG/DL (8.8-10.2); CREATININE FOR GFR 1.39 MG/DL (0.55-1.30); GLOMERULAR FILTRATION RATE 38.6 (>32); POTASSIUM SERUM 4.8 MEQ/L (3.5-5.1)
[2022-01-29] MEDS: FOLIC ACID 1 MG TAB PO SCH (09:01)
[2022-01-29] MEDS: HEPARIN SOD (PORCINE) 5000UNITS/ML 1ML VIAL/SYRINGE SC SCH ×2 (09:02→22:26)
[2022-01-29] MEDS: cefTRIAXone SOD 1 GM in D5W MINI-BAG PLUS 50 ML IV SCH (09:02)
[2022-01-29] MEDS: CYANOCOBALAMIN 500 MCG TAB PO SCH (09:02)
[2022-01-29] MEDS: amLODIPine 5 MG TAB PO SCH (09:02)
[2022-01-29] MEDS: QUEtiapine FUMARATE 25 MG TAB PO SCH ×2 (09:02→22:27)
[2022-01-29 14:00] VITALS: BP 114/75
[2022-01-29 22:00] VITALS: BP 111/71
[2022-01-29] MEDS: DONEPEZIL 5 MG TAB PO SCH (22:27)
[2022-01-30 05:47] VITALS: BP 117/57
[2022-01-30 06:22] LABS: HEMATOCRIT 36.4 % (36.0-47.0); HEMOGLOBIN 11.6 g/dl (12.0-15.5); MEAN CORPUSCULAR HEMOGLOBIN 29.8 pg (27.0-33.0); MEAN CORPUSCULAR HGB CONC 31.9 g/dl (32.0-36.5); MEAN CORPUSCULAR VOLUME 93.6 fl (80.0-96.0); PLATELET COUNT, AUTOMATED 193 10^3/uL (150-450); RED BLOOD COUNT 3.89 10^6/uL (4.00-5.40); WHITE BLOOD COUNT 5.9 10^3/uL (4.0-10.0)
[2022-01-30 06:36] LABS: CALCIUM LEVEL 8.3 MG/DL (8.8-10.2); CREATININE FOR GFR 1.5 MG/DL (0.55-1.30); GLOMERULAR FILTRATION RATE 35.4 (>32); POTASSIUM SERUM 4.7 MEQ/L (3.5-5.1)
[2022-01-30] MEDS: QUEtiapine FUMARATE 25 MG TAB PO SCH ×2 (08:28→21:00)
[2022-01-30] MEDS: CYANOCOBALAMIN 500 MCG TAB PO SCH (08:28)
[2022-01-30] MEDS: FOLIC ACID 1 MG TAB PO SCH (08:29)
[2022-01-30] MEDS: cefTRIAXone SOD 1 GM in D5W MINI-BAG PLUS 50 ML IV SCH (08:29)
[2022-01-30] MEDS: HEPARIN SOD (PORCINE) 5000UNITS/ML 1ML VIAL/SYRINGE SC SCH ×2 (08:29→21:00)
[2022-01-30] MEDS: amLODIPine 5 MG TAB PO SCH (08:29)
[2022-01-30] MEDS ORDERED: NS 1,000 ML IV SCH (10:00)
[2022-01-30] MEDS: CEPHALEXIN 250MG CAPSULE PO SCH ×2 (17:00→22:48)
[2022-01-30] MEDS: DONEPEZIL 5 MG TAB PO SCH (21:00)
[2022-01-31] MEDS: QUEtiapine FUMARATE 25 MG TAB PO SCH ×3 (02:28→22:17)
[2022-01-31 06:19] LABS: HEMATOCRIT 41.4 % (36.0-47.0); MEAN CORPUSCULAR HEMOGLOBIN 29.5 pg (27.0-33.0); MEAN CORPUSCULAR HGB CONC 31.4 g/dl (32.0-36.5); MEAN CORPUSCULAR VOLUME 93.9 fl (80.0-96.0); PLATELET COUNT, AUTOMATED 188 10^3/uL (150-450); RED BLOOD COUNT 4.41 10^6/uL (4.00-5.40); WHITE BLOOD COUNT 6.8 10^3/uL (4.0-10.0)
[2022-01-31 06:48] LABS: CALCIUM LEVEL 9.3 MG/DL (8.8-10.2); CREATININE FOR GFR 1.29 MG/DL (0.55-1.30); GLOMERULAR FILTRATION RATE 42.1 (>32); POTASSIUM SERUM 5.2 MEQ/L (3.5-5.1)
[2022-01-31] MEDS: FOLIC ACID 1 MG TAB PO SCH (09:10)
[2022-01-31] MEDS: CEPHALEXIN 250MG CAPSULE PO SCH ×5 (09:10→22:16)
[2022-01-31] MEDS: amLODIPine 5 MG TAB PO SCH (09:11)
[2022-01-31] MEDS: CYANOCOBALAMIN 500 MCG TAB PO SCH (09:12)
[2022-01-31] MEDS: HEPARIN SOD (PORCINE) 5000UNITS/ML 1ML VIAL/SYRINGE SC SCH ×2 (09:12→22:17)
[2022-01-31] MEDS ORDERED: HALOPERIDOL 5MG/ML VIAL (J1630 PER 1) IM PRN (12:30)
[2022-01-31] MEDS: DONEPEZIL 5 MG TAB PO SCH (22:15)
[2022-02-01 06:00] VITALS: BP 133/60
[2022-02-01 06:44] LABS: HEMATOCRIT 36.5 % (36.0-47.0); HEMOGLOBIN 11.6 g/dl (12.0-15.5); MEAN CORPUSCULAR HEMOGLOBIN 29.8 pg (27.0-33.0); MEAN CORPUSCULAR HGB CONC 31.8 g/dl (32.0-36.5); MEAN CORPUSCULAR VOLUME 93.8 fl (80.0-96.0); PLATELET COUNT, AUTOMATED 180 10^3/uL (150-450); RED BLOOD COUNT 3.89 10^6/uL (4.00-5.40); WHITE BLOOD COUNT 5.6 10^3/uL (4.0-10.0)
[2022-02-01 07:04] LABS: CALCIUM LEVEL 9.2 MG/DL (8.8-10.2); CREATININE FOR GFR 1.4 MG/DL (0.55-1.30); GLOMERULAR FILTRATION RATE 38.3 (>32); POTASSIUM SERUM 5.6 MEQ/L (3.5-5.1)
[2022-02-01] MEDS: HEPARIN SOD (PORCINE) 5000UNITS/ML 1ML VIAL/SYRINGE SC SCH ×3 (09:00→21:21)
[2022-02-01] MEDS: CYANOCOBALAMIN 500 MCG TAB PO SCH (09:00)
[2022-02-01] MEDS: FOLIC ACID 1 MG TAB PO SCH (09:00)
[2022-02-01] MEDS: QUEtiapine FUMARATE 25 MG TAB PO SCH ×2 (09:00→21:21)
[2022-02-01] MEDS: amLODIPine 5 MG TAB PO SCH (09:00)
[2022-02-01] MEDS: CEPHALEXIN 250MG CAPSULE PO SCH ×4 (09:00→21:21)
[2022-02-01 11:00] VITALS: BP 132/68
[2022-02-01] MEDS: DONEPEZIL 5 MG TAB PO SCH (21:21)
[2022-02-02 05:22] VITALS: BP 129/64
[2022-02-02] MEDS: CEPHALEXIN 250MG CAPSULE PO SCH ×2 (09:00→12:02)
[2022-02-02] MEDS: CEFDINIR 300 MG CAP (OMNICEF) PO SCH ×2 (09:00→19:59)
[2022-02-02] MEDS: HEPARIN SOD (PORCINE) 5000UNITS/ML 1ML VIAL/SYRINGE SC SCH ×2 (09:00→20:00)
[2022-02-02] MEDS: FOLIC ACID 1 MG TAB PO SCH (10:12)
[2022-02-02] MEDS: amLODIPine 5 MG TAB PO SCH (10:12)
[2022-02-02] MEDS: QUEtiapine FUMARATE 25 MG TAB PO SCH ×2 (10:12→19:59)
[2022-02-02] MEDS: CYANOCOBALAMIN 500 MCG TAB PO SCH (10:12)
[2022-02-02] MEDS: DONEPEZIL 5 MG TAB PO SCH (19:59)
[2022-02-03 06:00] VITALS: BP 132/78
[2022-02-03 06:15] LABS: CALCIUM LEVEL 8.4 MG/DL (8.8-10.2); CREATININE FOR GFR 1.44 MG/DL (0.55-1.30); GLOMERULAR FILTRATION RATE 37.1 (>32); POTASSIUM SERUM 5.3 MEQ/L (3.5-5.1)
[2022-02-03] MEDS ORDERED: CEFD300CAP PO (07:45)
[2022-02-03] MEDS ORDERED: AMLO1TAB24 PO (07:45)
[2022-02-03] MEDS ORDERED: QUET1TAB17 PO (07:45)
[2022-02-03] MEDS: HEPARIN SOD (PORCINE) 5000UNITS/ML 1ML VIAL/SYRINGE SC SCH (08:52)
[2022-02-03] MEDS ORDERED: SOD POLYSTYRENE SULFONATE SUSP 15GM 60ML UD PO ONE (09:00)
[2022-02-03] MEDS: QUEtiapine FUMARATE 25 MG TAB PO SCH (09:25)
[2022-02-03] MEDS: CEFDINIR 300 MG CAP (OMNICEF) PO SCH (09:25)
[2022-02-03] MEDS: CYANOCOBALAMIN 500 MCG TAB PO SCH (09:25)
[2022-02-03] MEDS: FOLIC ACID 1 MG TAB PO SCH (09:25)
[2022-02-03 09:26] VITALS: BP 132/78
[2022-02-03] MEDS: amLODIPine 5 MG TAB PO SCH (09:26)
[2022-02-03] MEDS ORDERED: PATIROMER SORBITEX CALCIUM 8.4 GM POWDER PACKET (VELTASSA) PO ONE (12:00)
== END 2022-02-03 10:35 | disposition home health service (06) | DRG 56 ==
LOC: M ED 14:31 → EDBD 14:31 → M ED INP 14:32 → ENRESERV 01-27 03:00 → M MSPAV 01-27 03:44 → OBSVTOIN 01-27 13:43
PROVIDERS: ADMIT Family Medicine; ATTEND Internal Medicine
DX: G31.83 Neurocognitive disorder with Lewy bodies (principal); G93.41 Metabolic encephalopathy; I13.0 Hypertensive heart and chronic kidney disease with heart failure and stage 1 through stage 4 chronic kidney disease, or unspecified chronic kidney disease; N39.0 Urinary tract infection, site not specified; N17.9 Acute kidney failure, unspecified; R44.0 Auditory hallucinations; R44.1 Visual hallucinations; N18.9 Chronic kidney disease, unspecified; F02.80 Dementia in other diseases classified elsewhere, unspecified severity, without behavioral disturbance, psychotic disturbance, mood disturbance, and anxiety; I50.9 Heart failure, unspecified; E86.0 Dehydration; R41.0 Disorientation, unspecified; B96.1 Klebsiella pneumoniae [K. pneumoniae] as the cause of diseases classified elsewhere; Z74.1 Need for assistance with personal care; Z90.49 Acquired absence of other specified parts of digestive tract; Z98.49 Cataract extraction status, unspecified eye; Z79.899 Other long term (current) drug therapy

== ENCOUNTER 2022-02-18 15:25 | Inpatient (IN) | payer MEDICARE, MEDICAID ==
[~2022-02-18] VITALS: Ht 162.6 cm; Wt 72.7 kg
[~2022-02-18 15:25] MED LIST changes: +AMLO1TAB24 PO; +ARIC1TAB PO; +CEFD250S26 PO; +CEFD300C PO; +CEFD300CAP PO; +LISI5TAB11 PO; +QUET1TAB17 PO; +VITA500T41 PO
[2022-02-18] MEDS ORDERED: TORS10TA3 PO (15:51)
[2022-02-18] MEDS ORDERED: QUET50TA4 (15:51)
[2022-02-18] MEDS ORDERED: LISI5TAB11 PO (15:51)
[2022-02-18 16:21] LABS: HEMATOCRIT 42.6 % (36.0-47.0); HEMOGLOBIN 13.8 g/dl (12.0-15.5); MEAN CORPUSCULAR HEMOGLOBIN 29.4 pg (27.0-33.0); MEAN CORPUSCULAR HGB CONC 32.4 g/dl (32.0-36.5); MEAN CORPUSCULAR VOLUME 90.8 fl (80.0-96.0); PLATELET COUNT, AUTOMATED 253 10^3/uL (150-450); RED BLOOD COUNT 4.69 10^6/uL (4.00-5.40)
[2022-02-18 16:49] LABS: ACETAMINOPHEN LEVEL < 2.0 UG/ML (10.0-30.0); ALBUMIN 3.3 GM/DL (3.2-5.2); ALT/SGPT 13 U/L (12-78); BILIRUBIN,DIRECT 0.1 MG/DL (0.0-0.2); BILIRUBIN,TOTAL 0.2 MG/DL (0.2-1.0); BLOOD UREA NITROGEN 18 MG/DL (7-18); CALCIUM LEVEL 9.4 MG/DL (8.8-10.2); CARBON DIOXIDE LEVEL 23 MEQ/L (21-32); CHLORIDE LEVEL 109 MEQ/L (98-107); CREATININE FOR GFR 1.55 MG/DL (0.55-1.30); ETHYL ALCOHOL (ETHANOL) < 0.003 % (0.000-0.010); GLOMERULAR FILTRATION RATE 34.1 (>32); GLUCOSE, FASTING 95 MG/DL (70-100); POTASSIUM SERUM 4.8 MEQ/L (3.5-5.1); SALICYLATE LEVEL 4.6 MG/DL (5.0-30.0); SODIUM LEVEL 141 MEQ/L (136-145); THYROID STIMULATING HORMONE 0.853 uIU/ML (0.358-3.740); TOTAL PROTEIN 7.3 GM/DL (6.4-8.2)
[2022-02-18 17:13] LABS: RSV AMPLIFICATION NEGATIVE (NEGATIVE)
[2022-02-18] MEDS ORDERED: QUET1TAB17 PO (18:56)
[2022-02-18] MEDS ORDERED: HOME MED LIST COMPLETE! XX SCH (19:05)
[2022-02-18 22:36] LABS: AMPHETAMINES LEVEL URINE NEGATIVE (NEGATIVE); BARBITURATES URINE NEGATIVE (NEGATIVE); BENZODIAZEPINES URINE NEGATIVE (NEGATIVE); CANNABINOIDS URINE NEGATIVE (NEGATIVE); COCAINE METABOLITE URINE NEGATIVE (NEGATIVE); METHADONE URINE NEGATIVE (NEGATIVE); OPIATES URINE NEGATIVE (NEGATIVE); PHENCYCLIDINE URINE NEGATIVE (NEGATIVE)
[2022-02-19] MEDS: amLODIPine 5 MG TAB PO SCH (11:31)
[2022-02-19] MEDS: CYANOCOBALAMIN 500 MCG TAB PO SCH (11:31)
[2022-02-19] MEDS: FOLIC ACID 1 MG TAB PO SCH (11:31)
[2022-02-19 11:33] LABS: ALBUMIN 3.1 GM/DL (3.2-5.2); BILIRUBIN,TOTAL 0.2 MG/DL (0.2-1.0); CALCIUM LEVEL 8.7 MG/DL (8.8-10.2); CREATININE FOR GFR 1.66 MG/DL (0.55-1.30); GLOMERULAR FILTRATION RATE 31.5 (>32); POTASSIUM SERUM 5.2 MEQ/L (3.5-5.1); TOTAL PROTEIN 6.6 GM/DL (6.4-8.2)
[2022-02-19 12:34] LABS: CHOLESTEROL RISK RATIO 4.043 (<5)
[2022-02-19] MEDS: NYSTATIN 100,000 UNITS/GM TOPICAL PWD 15 GM TOP SCH (14:00)
[2022-02-19] MEDS: ASPIRIN 81MG ENTERIC TABLET PO SCH (14:39)
[2022-02-19] MEDS: QUEtiapine FUMARATE 12.5 MG HALF-TAB PO SCH (14:39)
[2022-02-19 21:42] VITALS: BP 116/46
[2022-02-19] MEDS: CEFUROXIME 500 MG TAB PO SCH (21:49)
[2022-02-19] MEDS: QUEtiapine FUMARATE 25 MG TAB PO SCH (21:50)
[2022-02-19] MEDS: DONEPEZIL 5 MG TAB PO SCH (21:50)
[2022-02-19] MEDS: HEPARIN SOD (PORCINE) 5000UNITS/ML 1ML VIAL/SYRINGE SQ SCH (21:50)
[2022-02-19] MEDS ORDERED: SENNA 8.6 MG TAB (SENOKOT) PO PRN (22:20)
[2022-02-20] MEDS: NYSTATIN 100,000 UNITS/GM TOPICAL PWD 15 GM TOP SCH ×3 (02:37→20:04)
[2022-02-20] MEDS: DOCUSATE SODIUM 100MG CAPSULE PO SCH ×4 (02:37→20:03)
[2022-02-20 05:24] VITALS: BP 119/44
[2022-02-20 06:43] LABS: MEAN CORPUSCULAR HEMOGLOBIN 30.1 pg (27.0-33.0); MEAN CORPUSCULAR HGB CONC 32.5 g/dl (32.0-36.5); MEAN CORPUSCULAR VOLUME 92.5 fl (80.0-96.0); PLATELET COUNT, AUTOMATED 216 10^3/uL (150-450); RED BLOOD COUNT 3.89 10^6/uL (4.00-5.40); WHITE BLOOD COUNT 6.8 10^3/uL (4.0-10.0)
[2022-02-20 06:44] LABS: HEMOGLOBIN 11.7 g/dl (12.0-15.5)
[2022-02-20 06:51] LABS: CALCIUM LEVEL 8.3 MG/DL (8.8-10.2); CREATININE FOR GFR 1.66 MG/DL (0.55-1.30); GLOMERULAR FILTRATION RATE 31.5 (>32); POTASSIUM SERUM 4.9 MEQ/L (3.5-5.1)
[2022-02-20] MEDS: HEPARIN SOD (PORCINE) 5000UNITS/ML 1ML VIAL/SYRINGE SQ SCH ×2 (09:36→20:04)
[2022-02-20] MEDS: QUEtiapine FUMARATE 12.5 MG HALF-TAB PO SCH ×2 (09:37→15:43)
[2022-02-20] MEDS: CEFUROXIME 500 MG TAB PO SCH ×3 (09:37→20:03)
[2022-02-20] MEDS: FOLIC ACID 1 MG TAB PO SCH ×2 (09:37→15:43)
[2022-02-20] MEDS: amLODIPine 5 MG TAB PO SCH ×2 (09:37→15:43)
[2022-02-20] MEDS: CYANOCOBALAMIN 500 MCG TAB PO SCH ×2 (09:37→15:43)
[2022-02-20] MEDS: ASPIRIN 81MG ENTERIC TABLET PO SCH ×2 (09:37→15:43)
[2022-02-20 14:00] VITALS: BP 139/70
[2022-02-20] MEDS: DONEPEZIL 5 MG TAB PO SCH (20:03)
[2022-02-20] MEDS: QUEtiapine FUMARATE 25 MG TAB PO SCH (20:03)
[2022-02-20 22:00] VITALS: BP 129/56
[2022-02-21 06:00] VITALS: BP 114/87
[2022-02-21 06:31] LABS: HEMATOCRIT 34.9 % (36.0-47.0); HEMOGLOBIN 11.3 g/dl (12.0-15.5); MEAN CORPUSCULAR HEMOGLOBIN 30.3 pg (27.0-33.0); MEAN CORPUSCULAR HGB CONC 32.4 g/dl (32.0-36.5); MEAN CORPUSCULAR VOLUME 93.6 fl (80.0-96.0); PLATELET COUNT, AUTOMATED 227 10^3/uL (150-450); RED BLOOD COUNT 3.73 10^6/uL (4.00-5.40)
[2022-02-21 06:49] LABS: CALCIUM LEVEL 8.6 MG/DL (8.8-10.2); CREATININE FOR GFR 1.56 MG/DL (0.55-1.30); GLOMERULAR FILTRATION RATE 33.8 (>32); POTASSIUM SERUM 4.8 MEQ/L (3.5-5.1)
[2022-02-21] MEDS: QUEtiapine FUMARATE 12.5 MG HALF-TAB PO SCH (09:00)
[2022-02-21] MEDS: FOLIC ACID 1 MG TAB PO SCH (09:00)
[2022-02-21] MEDS: NYSTATIN 100,000 UNITS/GM TOPICAL PWD 15 GM TOP SCH ×2 (09:00→21:33)
[2022-02-21] MEDS: DOCUSATE SODIUM 100MG CAPSULE PO SCH ×2 (09:00→21:30)
[2022-02-21] MEDS: CEFUROXIME 500 MG TAB PO SCH ×2 (09:00→21:29)
[2022-02-21] MEDS: CYANOCOBALAMIN 500 MCG TAB PO SCH (09:00)
[2022-02-21] MEDS: ASPIRIN 81MG ENTERIC TABLET PO SCH (09:00)
[2022-02-21] MEDS: amLODIPine 5 MG TAB PO SCH (09:00)
[2022-02-21] MEDS: HEPARIN SOD (PORCINE) 5000UNITS/ML 1ML VIAL/SYRINGE SQ SCH ×2 (09:00→21:00)
[2022-02-21 14:00] VITALS: BP 142/86
[2022-02-21] MEDS: ATORVASTATIN 20 MG TAB PO SCH (17:12)
[2022-02-21] MEDS: DONEPEZIL 5 MG TAB PO SCH (21:29)
[2022-02-21] MEDS: QUEtiapine FUMARATE 25 MG TAB PO SCH (21:30)
[2022-02-21 22:00] VITALS: BP 107/78
[2022-02-22 06:00] VITALS: BP 144/65
[2022-02-22] MEDS: FOLIC ACID 1 MG TAB PO SCH (08:50)
[2022-02-22] MEDS: DOCUSATE SODIUM 100MG CAPSULE PO SCH ×2 (08:50→20:45)
[2022-02-22] MEDS: ASPIRIN 81MG ENTERIC TABLET PO SCH (08:51)
[2022-02-22] MEDS: amLODIPine 5 MG TAB PO SCH (08:51)
[2022-02-22] MEDS: QUEtiapine FUMARATE 12.5 MG HALF-TAB PO SCH (08:51)
[2022-02-22] MEDS: NYSTATIN 100,000 UNITS/GM TOPICAL PWD 15 GM TOP SCH ×2 (08:51→20:45)
[2022-02-22] MEDS: CYANOCOBALAMIN 500 MCG TAB PO SCH (08:51)
[2022-02-22] MEDS: HEPARIN SOD (PORCINE) 5000UNITS/ML 1ML VIAL/SYRINGE SQ SCH ×2 (08:51→20:47)
[2022-02-22] MEDS: ATORVASTATIN 20 MG TAB PO SCH (08:51)
[2022-02-22] MEDS: CEFUROXIME 500 MG TAB PO SCH ×2 (08:51→20:45)
[2022-02-22 09:54] LABS: HEMATOCRIT 37.4 % (36.0-47.0); MEAN CORPUSCULAR HEMOGLOBIN 29.6 pg (27.0-33.0); MEAN CORPUSCULAR HGB CONC 32.1 g/dl (32.0-36.5); MEAN CORPUSCULAR VOLUME 92.1 fl (80.0-96.0); PLATELET COUNT, AUTOMATED 219 10^3/uL (150-450); RED BLOOD COUNT 4.06 10^6/uL (4.00-5.40); WHITE BLOOD COUNT 7.1 10^3/uL (4.0-10.0)
[2022-02-22 10:18] LABS: CREATININE FOR GFR 1.31 MG/DL (0.55-1.30); GLOMERULAR FILTRATION RATE 41.4 (>32)
[2022-02-22 14:00] VITALS: BP 142/66
[2022-02-22] MEDS ORDERED: ASPI-551 PO (17:24)
[2022-02-22] MEDS ORDERED: CEFU1TAB20 PO (17:24)
[2022-02-22] MEDS ORDERED: ATOR1TAB21 PO (17:24)
[2022-02-22] MEDS ORDERED: QUET1TAB17 PO (17:24)
[2022-02-22] MEDS: DONEPEZIL 5 MG TAB PO SCH (20:45)
[2022-02-22] MEDS: QUEtiapine FUMARATE 25 MG TAB PO SCH (20:45)
[2022-02-23 06:00] VITALS: BP 141/64
[2022-02-23 06:16] LABS: HEMATOCRIT 34.9 % (36.0-47.0); HEMOGLOBIN 11.1 g/dl (12.0-15.5); MEAN CORPUSCULAR HEMOGLOBIN 29.4 pg (27.0-33.0); MEAN CORPUSCULAR HGB CONC 31.8 g/dl (32.0-36.5); MEAN CORPUSCULAR VOLUME 92.3 fl (80.0-96.0); PLATELET COUNT, AUTOMATED 190 10^3/uL (150-450); RED BLOOD COUNT 3.78 10^6/uL (4.00-5.40); WHITE BLOOD COUNT 7.6 10^3/uL (4.0-10.0)
[2022-02-23 06:36] LABS: CALCIUM LEVEL 8.7 MG/DL (8.8-10.2); CREATININE FOR GFR 1.32 MG/DL (0.55-1.30); POTASSIUM SERUM 4.8 MEQ/L (3.5-5.1)
[2022-02-23] MEDS: QUEtiapine FUMARATE 12.5 MG HALF-TAB PO SCH ×2 (09:49→09:50)
[2022-02-23] MEDS: CEFUROXIME 500 MG TAB PO SCH ×2 (09:49→09:50)
[2022-02-23] MEDS: ATORVASTATIN 20 MG TAB PO SCH ×2 (09:49→09:50)
[2022-02-23] MEDS: FOLIC ACID 1 MG TAB PO SCH ×2 (09:49→09:50)
[2022-02-23] MEDS: ASPIRIN 81MG ENTERIC TABLET PO SCH ×2 (09:49→09:50)
[2022-02-23] MEDS: DOCUSATE SODIUM 100MG CAPSULE PO SCH ×2 (09:49→09:50)
[2022-02-23] MEDS: NYSTATIN 100,000 UNITS/GM TOPICAL PWD 15 GM TOP SCH ×2 (09:50→09:52)
[2022-02-23] MEDS: amLODIPine 5 MG TAB PO SCH ×2 (09:50→09:54)
[2022-02-23] MEDS: CYANOCOBALAMIN 500 MCG TAB PO SCH (09:50)
[2022-02-23] MEDS: HEPARIN SOD (PORCINE) 5000UNITS/ML 1ML VIAL/SYRINGE SQ SCH (09:50)
[2022-02-23] MEDS ORDERED: ASPI81TA26 PO (11:34)
[2022-02-23] MEDS ORDERED: ATOR40TA75 PO (11:34)
[2022-02-23] MEDS ORDERED: CEFU1TAB20 PO (11:34)
== END 2022-02-23 16:45 | DRG 57 ==
LOC: M ED 15:25 → EDBD 15:25 → M ED INP 02-19 09:52 → ENRESERV 02-19 18:07 → M MSPAV 02-19 18:46
PROVIDERS: ADMIT Internal Medicine; ATTEND Family Medicine
PROC: B246ZZZ Ultrasonography of Right and Left Heart (ICD-10-PCS; principal; 2022-02-21)
DX: G30.9 Alzheimer's disease, unspecified (principal); I13.0 Hypertensive heart and chronic kidney disease with heart failure and stage 1 through stage 4 chronic kidney disease, or unspecified chronic kidney disease; N39.0 Urinary tract infection, site not specified; F02.81 Dementia in other diseases classified elsewhere, unspecified severity, with behavioral disturbance; N18.9 Chronic kidney disease, unspecified; I50.9 Heart failure, unspecified; E53.8 Deficiency of other specified B group vitamins; Z86.73 Personal history of transient ischemic attack (TIA), and cerebral infarction without residual deficits; Z90.49 Acquired absence of other specified parts of digestive tract; Z98.49 Cataract extraction status, unspecified eye; B37.2 Candidiasis of skin and nail; Z20.822 Contact with and (suspected) exposure to COVID-19; Z79.899 Other long term (current) drug therapy; B95.2 Enterococcus as the cause of diseases classified elsewhere

== ENCOUNTER 2022-06-26 15:55 | Inpatient (IN) | payer MEDICARE, MEDICAID ==
[~2022-06-26] VITALS: Ht 154.9 cm; Wt 72.2 kg
[~2022-06-26 15:55] MED LIST changes: +ASPI-551 PO; +ASPI81TA26 PO; +ATOR1TAB21 PO; +ATOR40TA75 PO; +CEFU1TAB20 PO; +QUET50TA4
[2022-06-26 18:57] LABS: BASO # 0.1 10^3/uL (0.0-0.2); BASO % 0.7 % (0.0-1.0); EOS # 0.1 10^3/uL (0.0-0.5); EOS % 1.6 % (0.0-3.0); HEMATOCRIT 43.4 % (36.0-47.0); HEMOGLOBIN 13.8 g/dl (12.0-15.5); LYMPH # 2.1 10^3/uL (1.5-5.0); LYMPH % 25.4 % (24.0-44.0); MEAN CORPUSCULAR HEMOGLOBIN 29.4 pg (27.0-33.0); MEAN CORPUSCULAR HGB CONC 31.8 g/dl (32.0-36.5); MEAN CORPUSCULAR VOLUME 92.5 fl (80.0-96.0); MONO # 0.7 10^3/uL (0.0-0.8); MONO % 8.4 % (2.0-8.0); NEUTROPHILS # 5.3 10^3/uL (1.5-8.5); NEUTROPHILS % 63.5 % (36.0-66.0); PLATELET COUNT, AUTOMATED 231 10^3/uL (150-450); RED BLOOD COUNT 4.69 10^6/uL (4.00-5.40); WHITE BLOOD COUNT 8.3 10^3/uL (4.0-10.0)
[2022-06-26 19:32] LABS: ACETAMINOPHEN LEVEL < 2.0 UG/ML (10.0-30.0); ALKALINE PHOSPHATASE 115 U/L (45-117); ALT/SGPT 11 U/L (12-78); AST/SGOT 9 U/L (7-37); BILIRUBIN,DIRECT < 0.1 MG/DL (0.0-0.2); BILIRUBIN,TOTAL 0.3 MG/DL (0.2-1.0); BLOOD UREA NITROGEN 19 MG/DL (7-18); CALCIUM LEVEL 8.8 MG/DL (8.8-10.2); CARBON DIOXIDE LEVEL 27 MEQ/L (21-32); CHLORIDE LEVEL 109 MEQ/L (98-107); CREATININE FOR GFR 1.58 MG/DL (0.55-1.30); ETHYL ALCOHOL (ETHANOL) < 0.003 % (0.000-0.010); GLOMERULAR FILTRATION RATE 33.2 (>32); GLUCOSE, FASTING 105 MG/DL (70-100); POTASSIUM SERUM 5.1 MEQ/L (3.5-5.1); SALICYLATE LEVEL 6.5 MG/DL (5.0-30.0); SODIUM LEVEL 140 MEQ/L (136-145); TOTAL PROTEIN 6.7 GM/DL (6.4-8.2)
[2022-06-26 19:39] LABS: RSV AMPLIFICATION NEGATIVE (NEGATIVE)
[2022-06-26] MEDS ORDERED: AMLO1TAB24 PO (20:03)
[2022-06-26] MEDS ORDERED: VITA500T40 PO (20:03)
[2022-06-26] MEDS ORDERED: LISI5TAB11 PO (20:03)
[2022-06-26] MEDS ORDERED: TORS10TA3 PO (20:03)
[2022-06-26] MEDS ORDERED: QUET50TA4 PO (20:03)
[2022-06-26] MEDS ORDERED: ATOR40TA75 PO (20:03)
[2022-06-26] MEDS ORDERED: HOME MED LIST COMPLETE! XX SCH (20:05)
[2022-06-26] MEDS ORDERED: med rec comment (20:05)
[2022-06-26] MEDS: QUEtiapine FUMARATE 50MG TAB PO SCH (21:00)
[2022-06-27] MEDS ORDERED: ACETAMINOPHEN TAB 650MG DOSE (2X325MG) PO PRN (00:35)
[2022-06-27] MEDS ORDERED: lisinopriL 5 MG TAB PO SCH (09:00)
[2022-06-27] MEDS: amLODIPine 5 MG TAB PO SCH (10:24)
[2022-06-27] MEDS: DOCUSATE SODIUM 100MG CAPSULE PO SCH ×2 (10:24→20:41)
[2022-06-27] MEDS: FOLIC ACID 1MG TAB PO SCH (10:24)
[2022-06-27] MEDS ORDERED: HALOPERIDOL 5MG/ML 1ML VIAL IM PRN (12:40)
[2022-06-27] MEDS: DONEPEZIL 5 MG TAB PO SCH (20:51)
[2022-06-27] MEDS: QUEtiapine FUMARATE 50MG TAB PO SCH (20:51)
[2022-06-27] MEDS: ATORVASTATIN 20 MG TAB PO SCH (20:51)
[2022-06-28] MEDS: FOLIC ACID 1MG TAB PO SCH (09:00)
[2022-06-28] MEDS: amLODIPine 5 MG TAB PO SCH (09:00)
[2022-06-28] MEDS: DOCUSATE SODIUM 100MG CAPSULE PO SCH ×2 (09:00→21:00)
[2022-06-28] MEDS ORDERED: CEFDINIR 300 MG CAP (OMNICEF) PO SCH (09:00)
[2022-06-28] MEDS ORDERED: cefTRIAXone SOD 1GM VIAL IM ONE (12:00)
[2022-06-28] MEDS ORDERED: LIDOCAINE 1% SDV 5ML VIAL DILUENT ONE (12:00)
[2022-06-28] MEDS: QUEtiapine FUMARATE 50MG TAB PO SCH (21:00)
[2022-06-28] MEDS: ATORVASTATIN 20 MG TAB PO SCH (21:00)
[2022-06-28] MEDS: DONEPEZIL 5 MG TAB PO SCH (21:00)
[2022-06-28 22:00] VITALS: BP 117/73
[2022-06-29] MEDS: amLODIPine 5 MG TAB PO SCH (09:00)
[2022-06-29] MEDS: FOLIC ACID 1MG TAB PO SCH (09:00)
[2022-06-29] MEDS: DOCUSATE SODIUM 100MG CAPSULE PO SCH ×2 (09:00→21:00)
[2022-06-29] MEDS: QUEtiapine FUMARATE 50MG TAB PO SCH (21:00)
[2022-06-29] MEDS: ATORVASTATIN 20 MG TAB PO SCH (21:00)
[2022-06-29] MEDS: DONEPEZIL 5 MG TAB PO SCH (21:00)
[2022-06-30] MEDS: amLODIPine 5 MG TAB PO SCH (08:59)
[2022-06-30] MEDS: FOLIC ACID 1MG TAB PO SCH (08:59)
[2022-06-30] MEDS: DOCUSATE SODIUM 100MG CAPSULE PO SCH ×2 (08:59→21:00)
[2022-06-30 14:00] VITALS: BP 135/86
[2022-06-30] MEDS: QUEtiapine FUMARATE 50MG TAB PO SCH (21:00)
[2022-06-30] MEDS: DONEPEZIL 5 MG TAB PO SCH (21:00)
[2022-06-30] MEDS: ATORVASTATIN 20 MG TAB PO SCH (21:00)
[2022-07-01] MEDS: FOLIC ACID 1MG TAB PO SCH (09:00)
[2022-07-01] MEDS: amLODIPine 5 MG TAB PO SCH (09:00)
[2022-07-01] MEDS: DOCUSATE SODIUM 100MG CAPSULE PO SCH ×2 (09:00→20:53)
[2022-07-01] MEDS: DONEPEZIL 5 MG TAB PO SCH (20:53)
[2022-07-01] MEDS: ATORVASTATIN 20 MG TAB PO SCH (20:54)
[2022-07-01] MEDS: QUEtiapine FUMARATE 50MG TAB PO SCH (20:54)
[2022-07-02 06:00] VITALS: BP 142/66
[2022-07-02] MEDS: DOCUSATE SODIUM 100MG CAPSULE PO SCH ×2 (09:00→20:43)
[2022-07-02] MEDS: FOLIC ACID 1MG TAB PO SCH (09:00)
[2022-07-02] MEDS: amLODIPine 5 MG TAB PO SCH (09:00)
[2022-07-02] MEDS: DONEPEZIL 5 MG TAB PO SCH (20:42)
[2022-07-02] MEDS: QUEtiapine FUMARATE 50MG TAB PO SCH (20:43)
[2022-07-02] MEDS: ATORVASTATIN 20 MG TAB PO SCH (20:43)
[2022-07-03 05:35] VITALS: BP 134/86
[2022-07-03] MEDS: FOLIC ACID 1MG TAB PO SCH (08:52)
[2022-07-03] MEDS: DOCUSATE SODIUM 100MG CAPSULE PO SCH ×2 (08:52→20:39)
[2022-07-03] MEDS: amLODIPine 5 MG TAB PO SCH (08:52)
[2022-07-03] MEDS: ATORVASTATIN 20 MG TAB PO SCH (20:39)
[2022-07-03] MEDS: DONEPEZIL 5 MG TAB PO SCH (20:39)
[2022-07-03] MEDS: QUEtiapine FUMARATE 50MG TAB PO SCH (20:39)
[2022-07-03] MEDS: LORazepam 2 MG/ML 1ML VIAL IM PRN (23:27)
[2022-07-04] MEDS: LORazepam 2 MG/ML 1ML VIAL IM PRN (05:33)
[2022-07-04] MEDS: DOCUSATE SODIUM 100MG CAPSULE PO SCH ×2 (08:35→20:46)
[2022-07-04] MEDS: amLODIPine 5 MG TAB PO SCH (08:35)
[2022-07-04] MEDS: FOLIC ACID 1MG TAB PO SCH (08:35)
[2022-07-04] MEDS: ATORVASTATIN 20 MG TAB PO SCH (20:46)
[2022-07-04] MEDS: DONEPEZIL 5 MG TAB PO SCH (20:46)
[2022-07-04] MEDS: QUEtiapine FUMARATE 50MG TAB PO SCH (20:46)
[2022-07-05] MEDS: amLODIPine 5 MG TAB PO SCH (07:57)
[2022-07-05] MEDS: FOLIC ACID 1MG TAB PO SCH (07:57)
[2022-07-05] MEDS: DOCUSATE SODIUM 100MG CAPSULE PO SCH ×2 (07:57→21:00)
[2022-07-05] MEDS: QUEtiapine FUMARATE 50MG TAB PO SCH (21:00)
[2022-07-05] MEDS: DONEPEZIL 5 MG TAB PO SCH (21:00)
[2022-07-05] MEDS: ATORVASTATIN 20 MG TAB PO SCH (21:00)
[2022-07-06] MEDS: FOLIC ACID 1MG TAB PO SCH (07:53)
[2022-07-06] MEDS: DOCUSATE SODIUM 100MG CAPSULE PO SCH ×2 (07:53→20:43)
[2022-07-06] MEDS: amLODIPine 5 MG TAB PO SCH (07:53)
[2022-07-06] MEDS: DONEPEZIL 5 MG TAB PO SCH (20:43)
[2022-07-06] MEDS: QUEtiapine FUMARATE 50MG TAB PO SCH (20:44)
[2022-07-06] MEDS: ATORVASTATIN 20 MG TAB PO SCH (20:44)
[2022-07-07] MEDS ORDERED: TORSEMIDE 10 MG TABLET PO SCH (09:00)
[2022-07-07] MEDS: amLODIPine 5 MG TAB PO SCH (09:00)
[2022-07-07] MEDS: FOLIC ACID 1MG TAB PO SCH (09:00)
[2022-07-07] MEDS: DOCUSATE SODIUM 100MG CAPSULE PO SCH ×2 (09:00→21:00)
[2022-07-07] MEDS: QUEtiapine FUMARATE 50MG TAB PO SCH (21:00)
[2022-07-07] MEDS: ATORVASTATIN 20 MG TAB PO SCH (21:00)
[2022-07-07] MEDS: DONEPEZIL 5 MG TAB PO SCH (21:00)
[2022-07-08] MEDS: FOLIC ACID 1MG TAB PO SCH (09:00)
[2022-07-08] MEDS: amLODIPine 5 MG TAB PO SCH (09:00)
[2022-07-08] MEDS: DOCUSATE SODIUM 100MG CAPSULE PO SCH ×2 (09:00→21:00)
[2022-07-08] MEDS: ATORVASTATIN 20 MG TAB PO SCH (21:00)
[2022-07-08] MEDS: DONEPEZIL 5 MG TAB PO SCH (21:00)
[2022-07-08] MEDS: QUEtiapine FUMARATE 50MG TAB PO SCH (21:00)
[2022-07-09 06:00] VITALS: BP 160/90
[2022-07-09] MEDS: DOCUSATE SODIUM 100MG CAPSULE PO SCH ×2 (07:58→21:00)
[2022-07-09] MEDS: FOLIC ACID 1MG TAB PO SCH (07:58)
[2022-07-09] MEDS: amLODIPine 5 MG TAB PO SCH (07:58)
[2022-07-09] MEDS: ATORVASTATIN 20 MG TAB PO SCH (21:00)
[2022-07-09] MEDS: DONEPEZIL 5 MG TAB PO SCH (21:00)
[2022-07-09] MEDS: QUEtiapine FUMARATE 50MG TAB PO SCH (21:00)
[2022-07-10] MEDS: DOCUSATE SODIUM 100MG CAPSULE PO SCH ×2 (07:58→20:30)
[2022-07-10] MEDS: FOLIC ACID 1MG TAB PO SCH (07:58)
[2022-07-10] MEDS: amLODIPine 5 MG TAB PO SCH (07:59)
[2022-07-10] MEDS: DONEPEZIL 5 MG TAB PO SCH (20:30)
[2022-07-10] MEDS: ATORVASTATIN 20 MG TAB PO SCH (20:31)
[2022-07-10] MEDS: QUEtiapine FUMARATE 50MG TAB PO SCH (20:31)
[2022-07-11] MEDS: amLODIPine 5 MG TAB PO SCH (09:00)
[2022-07-11] MEDS: DOCUSATE SODIUM 100MG CAPSULE PO SCH ×2 (09:00→20:35)
[2022-07-11] MEDS: FOLIC ACID 1MG TAB PO SCH (09:00)
[2022-07-11] MEDS: DONEPEZIL 5 MG TAB PO SCH (20:35)
[2022-07-11] MEDS: QUEtiapine FUMARATE 50MG TAB PO SCH (20:35)
[2022-07-11] MEDS: ATORVASTATIN 20 MG TAB PO SCH (20:35)
[2022-07-12 06:00] VITALS: BP 151/67
[2022-07-12] MEDS: amLODIPine 5 MG TAB PO SCH (08:45)
[2022-07-12] MEDS: FOLIC ACID 1MG TAB PO SCH (08:45)
[2022-07-12] MEDS: DOCUSATE SODIUM 100MG CAPSULE PO SCH ×2 (08:45→20:17)
[2022-07-12] MEDS: QUEtiapine FUMARATE 50MG TAB PO SCH (20:17)
[2022-07-12] MEDS: ATORVASTATIN 20 MG TAB PO SCH (20:17)
[2022-07-12] MEDS: DONEPEZIL 5 MG TAB PO SCH (20:17)
[2022-07-13 06:00] VITALS: BP 116/57
[2022-07-13] MEDS: FOLIC ACID 1MG TAB PO SCH (07:48)
[2022-07-13] MEDS: DOCUSATE SODIUM 100MG CAPSULE PO SCH ×2 (07:48→21:00)
[2022-07-13] MEDS: amLODIPine 5 MG TAB PO SCH (07:48)
[2022-07-13] MEDS: ATORVASTATIN 20 MG TAB PO SCH (21:00)
[2022-07-13] MEDS: DONEPEZIL 5 MG TAB PO SCH (21:00)
[2022-07-13] MEDS: QUEtiapine FUMARATE 50MG TAB PO SCH (21:00)
[2022-07-13] MEDS ORDERED: NEOSPORIN OINT 0.9 GM PKT TOP PRN (22:50)
[2022-07-14] MEDS: DOCUSATE SODIUM 100MG CAPSULE PO SCH ×2 (07:49→21:00)
[2022-07-14] MEDS: FOLIC ACID 1MG TAB PO SCH (07:49)
[2022-07-14] MEDS: amLODIPine 5 MG TAB PO SCH (07:50)
[2022-07-14] MEDS ORDERED: OLANZapine INTRAMUSCULAR 10MG VIAL IM PRN (10:05)
[2022-07-14] MEDS: ATORVASTATIN 20 MG TAB PO SCH (21:00)
[2022-07-14] MEDS: DONEPEZIL 5 MG TAB PO SCH (21:00)
[2022-07-14] MEDS: QUEtiapine FUMARATE 50MG TAB PO SCH (21:00)
[2022-07-15] MEDS: FOLIC ACID 1MG TAB PO SCH (07:59)
[2022-07-15] MEDS: DOCUSATE SODIUM 100MG CAPSULE PO SCH ×2 (07:59→20:17)
[2022-07-15] MEDS: amLODIPine 5 MG TAB PO SCH (08:00)
[2022-07-15] MEDS: ATORVASTATIN 20 MG TAB PO SCH (20:17)
[2022-07-15] MEDS: QUEtiapine FUMARATE 50MG TAB PO SCH (20:17)
[2022-07-15] MEDS: DONEPEZIL 5 MG TAB PO SCH (20:17)
[2022-07-16] MEDS: DOCUSATE SODIUM 100MG CAPSULE PO SCH ×2 (09:00→21:00)
[2022-07-16] MEDS: FOLIC ACID 1MG TAB PO SCH (09:00)
[2022-07-16] MEDS: amLODIPine 5 MG TAB PO SCH (09:00)
[2022-07-16] MEDS: ATORVASTATIN 20 MG TAB PO SCH (21:00)
[2022-07-16] MEDS: DONEPEZIL 5 MG TAB PO SCH (21:00)
[2022-07-16] MEDS: QUEtiapine FUMARATE 50MG TAB PO SCH (21:00)
[2022-07-17 06:00] VITALS: BP 146/69
[2022-07-17] MEDS: FOLIC ACID 1MG TAB PO SCH (09:00)
[2022-07-17] MEDS: amLODIPine 5 MG TAB PO SCH (09:00)
[2022-07-17] MEDS: DOCUSATE SODIUM 100MG CAPSULE PO SCH ×2 (09:00→21:00)
[2022-07-17] MEDS: QUEtiapine FUMARATE 50MG TAB PO SCH (21:00)
[2022-07-17] MEDS: DONEPEZIL 5 MG TAB PO SCH (21:00)
[2022-07-17] MEDS: ATORVASTATIN 20 MG TAB PO SCH (21:00)
[2022-07-18 06:58] VITALS: BP 164/85
[2022-07-18] MEDS: DOCUSATE SODIUM 100MG CAPSULE PO SCH ×2 (08:04→21:00)
[2022-07-18] MEDS: amLODIPine 5 MG TAB PO SCH (08:05)
[2022-07-18] MEDS: FOLIC ACID 1MG TAB PO SCH (08:05)
[2022-07-18] MEDS: QUEtiapine FUMARATE 50MG TAB PO SCH (21:00)
[2022-07-18] MEDS: ATORVASTATIN 20 MG TAB PO SCH (21:00)
[2022-07-18] MEDS: DONEPEZIL 5 MG TAB PO SCH (21:00)
[2022-07-19 06:00] VITALS: BP 117/71
[2022-07-19] MEDS: amLODIPine 5 MG TAB PO SCH (09:00)
[2022-07-19] MEDS: DOCUSATE SODIUM 100MG CAPSULE PO SCH ×2 (09:00→21:00)
[2022-07-19] MEDS: FOLIC ACID 1MG TAB PO SCH (09:00)
[2022-07-19] MEDS: QUEtiapine FUMARATE 50MG TAB PO SCH (21:00)
[2022-07-19] MEDS: DONEPEZIL 5 MG TAB PO SCH (21:00)
[2022-07-19] MEDS: ATORVASTATIN 20 MG TAB PO SCH (21:00)
[2022-07-20 06:00] VITALS: BP 150/80
[2022-07-20] MEDS: amLODIPine 5 MG TAB PO SCH (08:24)
[2022-07-20] MEDS: FOLIC ACID 1MG TAB PO SCH (08:24)
[2022-07-20] MEDS: DOCUSATE SODIUM 100MG CAPSULE PO SCH ×2 (08:24→21:00)
[2022-07-20] MEDS: ATORVASTATIN 20 MG TAB PO SCH (21:00)
[2022-07-20] MEDS: QUEtiapine FUMARATE 50MG TAB PO SCH (21:00)
[2022-07-20] MEDS: DONEPEZIL 5 MG TAB PO SCH (21:00)
[2022-07-21 05:45] VITALS: BP 143/67
[2022-07-21] MEDS: DOCUSATE SODIUM 100MG CAPSULE PO SCH ×2 (08:31→21:00)
[2022-07-21] MEDS: FOLIC ACID 1MG TAB PO SCH (08:31)
[2022-07-21] MEDS: amLODIPine 5 MG TAB PO SCH (08:31)
[2022-07-21] MEDS: ATORVASTATIN 20 MG TAB PO SCH (21:00)
[2022-07-21] MEDS: QUEtiapine FUMARATE 50MG TAB PO SCH (21:00)
[2022-07-21] MEDS: DONEPEZIL 5 MG TAB PO SCH (21:00)
[2022-07-22 04:50] VITALS: BP 151/82
[2022-07-22] MEDS: FOLIC ACID 1MG TAB PO SCH (08:44)
[2022-07-22] MEDS: DOCUSATE SODIUM 100MG CAPSULE PO SCH ×2 (08:44→19:06)
[2022-07-22] MEDS: amLODIPine 5 MG TAB PO SCH (08:44)
[2022-07-22] MEDS: ATORVASTATIN 20 MG TAB PO SCH (19:06)
[2022-07-22] MEDS: DONEPEZIL 5 MG TAB PO SCH (19:06)
[2022-07-22] MEDS: QUEtiapine FUMARATE 50MG TAB PO SCH (19:36)
[2022-07-23] MEDS: DOCUSATE SODIUM 100MG CAPSULE PO SCH ×2 (09:00→22:14)
[2022-07-23] MEDS: amLODIPine 5 MG TAB PO SCH (09:00)
[2022-07-23] MEDS: FOLIC ACID 1MG TAB PO SCH (09:00)
[2022-07-23 16:00] VITALS: BP 153/82
[2022-07-23] MEDS: DONEPEZIL 5 MG TAB PO SCH (22:14)
[2022-07-23] MEDS: QUEtiapine FUMARATE 50MG TAB PO SCH (22:15)
[2022-07-23] MEDS: ATORVASTATIN 20 MG TAB PO SCH (22:15)
[2022-07-24] MEDS: amLODIPine 5 MG TAB PO SCH (08:42)
[2022-07-24] MEDS: FOLIC ACID 1MG TAB PO SCH (08:42)
[2022-07-24] MEDS: DOCUSATE SODIUM 100MG CAPSULE PO SCH ×2 (08:42→20:48)
[2022-07-24] MEDS: ATORVASTATIN 20 MG TAB PO SCH (20:48)
[2022-07-24] MEDS: QUEtiapine FUMARATE 50MG TAB PO SCH (20:48)
[2022-07-24] MEDS: DONEPEZIL 5 MG TAB PO SCH (20:48)
[2022-07-25] MEDS: DOCUSATE SODIUM 100MG CAPSULE PO SCH ×2 (08:39→20:22)
[2022-07-25] MEDS: amLODIPine 5 MG TAB PO SCH (08:39)
[2022-07-25] MEDS: FOLIC ACID 1MG TAB PO SCH (08:39)
[2022-07-25] MEDS: DONEPEZIL 5 MG TAB PO SCH (20:22)
[2022-07-25] MEDS: QUEtiapine FUMARATE 50MG TAB PO SCH (20:22)
[2022-07-25] MEDS: ATORVASTATIN 20 MG TAB PO SCH (20:22)
[2022-07-26] MEDS: FOLIC ACID 1MG TAB PO SCH (09:00)
[2022-07-26] MEDS: DOCUSATE SODIUM 100MG CAPSULE PO SCH ×2 (09:00→21:00)
[2022-07-26] MEDS: amLODIPine 5 MG TAB PO SCH (09:00)
[2022-07-26] MEDS: QUEtiapine FUMARATE 50MG TAB PO SCH (21:00)
[2022-07-26] MEDS: DONEPEZIL 5 MG TAB PO SCH (21:00)
[2022-07-26] MEDS: ATORVASTATIN 20 MG TAB PO SCH (21:00)
[2022-07-27 06:00] VITALS: BP 139/78
[2022-07-27] MEDS: amLODIPine 5 MG TAB PO SCH (09:00)
[2022-07-27] MEDS: FOLIC ACID 1MG TAB PO SCH (09:00)
[2022-07-27] MEDS: DOCUSATE SODIUM 100MG CAPSULE PO SCH ×2 (09:00→22:20)
[2022-07-27] MEDS: QUEtiapine FUMARATE 50MG TAB PO SCH (22:20)
[2022-07-27] MEDS: DONEPEZIL 5 MG TAB PO SCH (22:20)
[2022-07-27] MEDS: ATORVASTATIN 20 MG TAB PO SCH (22:20)
[2022-07-28 06:00] VITALS: BP 136/57
[2022-07-28] MEDS: amLODIPine 5 MG TAB PO SCH (08:51)
[2022-07-28] MEDS: DOCUSATE SODIUM 100MG CAPSULE PO SCH ×2 (08:51→20:36)
[2022-07-28] MEDS: FOLIC ACID 1MG TAB PO SCH (08:51)
[2022-07-28] MEDS: DONEPEZIL 5 MG TAB PO SCH (20:35)
[2022-07-28] MEDS: QUEtiapine FUMARATE 50MG TAB PO SCH (20:36)
[2022-07-28] MEDS: ATORVASTATIN 20 MG TAB PO SCH (20:36)
[2022-07-29 06:00] VITALS: BP 141/77
[2022-07-29] MEDS: FOLIC ACID 1MG TAB PO SCH (09:00)
[2022-07-29] MEDS: amLODIPine 5 MG TAB PO SCH (09:00)
[2022-07-29] MEDS: DOCUSATE SODIUM 100MG CAPSULE PO SCH ×2 (09:00→21:00)
[2022-07-29] MEDS: QUEtiapine FUMARATE 50MG TAB PO SCH (21:00)
[2022-07-29] MEDS: ATORVASTATIN 20 MG TAB PO SCH (21:00)
[2022-07-29] MEDS: DONEPEZIL 5 MG TAB PO SCH (21:00)
[2022-07-30 05:37] VITALS: BP 97/79
[2022-07-30 05:43] VITALS: BP 172/84
[2022-07-30] MEDS: amLODIPine 5 MG TAB PO SCH (08:57)
[2022-07-30] MEDS: DOCUSATE SODIUM 100MG CAPSULE PO SCH ×2 (08:57→21:00)
[2022-07-30] MEDS: FOLIC ACID 1MG TAB PO SCH (08:57)
[2022-07-30] MEDS: QUEtiapine FUMARATE 50MG TAB PO SCH (21:00)
[2022-07-30] MEDS: ATORVASTATIN 20 MG TAB PO SCH (21:00)
[2022-07-30] MEDS: DONEPEZIL 5 MG TAB PO SCH (21:00)
[2022-07-31] MEDS: DOCUSATE SODIUM 100MG CAPSULE PO SCH ×2 (08:28→21:00)
[2022-07-31] MEDS: amLODIPine 5 MG TAB PO SCH (08:28)
[2022-07-31] MEDS: FOLIC ACID 1MG TAB PO SCH (08:28)
[2022-07-31] MEDS: ATORVASTATIN 20 MG TAB PO SCH (21:00)
[2022-07-31] MEDS: DONEPEZIL 5 MG TAB PO SCH (21:00)
[2022-07-31] MEDS: QUEtiapine FUMARATE 50MG TAB PO SCH (21:00)
[2022-08-01] MEDS: DOCUSATE SODIUM 100MG CAPSULE PO SCH ×2 (09:00→20:46)
[2022-08-01] MEDS: FOLIC ACID 1MG TAB PO SCH (09:00)
[2022-08-01] MEDS: amLODIPine 5 MG TAB PO SCH (09:00)
[2022-08-01] MEDS: ATORVASTATIN 20 MG TAB PO SCH (20:46)
[2022-08-01] MEDS: DONEPEZIL 5 MG TAB PO SCH (20:46)
[2022-08-01] MEDS: QUEtiapine FUMARATE 50MG TAB PO SCH (20:46)
[2022-08-02] MEDS: FOLIC ACID 1MG TAB PO SCH (09:00)
[2022-08-02] MEDS: amLODIPine 5 MG TAB PO SCH (09:00)
[2022-08-02] MEDS: DOCUSATE SODIUM 100MG CAPSULE PO SCH ×2 (09:00→20:03)
[2022-08-02] MEDS: ATORVASTATIN 20 MG TAB PO SCH (20:03)
[2022-08-02] MEDS: DONEPEZIL 5 MG TAB PO SCH (20:03)
[2022-08-02] MEDS: QUEtiapine FUMARATE 50MG TAB PO SCH (20:03)
[2022-08-03] MEDS: FOLIC ACID 1MG TAB PO SCH (09:00)
[2022-08-03] MEDS: DOCUSATE SODIUM 100MG CAPSULE PO SCH ×2 (09:00→20:54)
[2022-08-03] MEDS: amLODIPine 5 MG TAB PO SCH (09:00)
[2022-08-03 12:00] VITALS: BP 171/104
[2022-08-03 13:15] VITALS: BP 121/73
[2022-08-03] MEDS: DONEPEZIL 5 MG TAB PO SCH (20:54)
[2022-08-03] MEDS: ATORVASTATIN 20 MG TAB PO SCH (20:54)
[2022-08-03] MEDS: QUEtiapine FUMARATE 50MG TAB PO SCH (20:54)
[2022-08-04 06:00] VITALS: BP 145/89
[2022-08-04] MEDS: FOLIC ACID 1MG TAB PO SCH (08:35)
[2022-08-04] MEDS: DOCUSATE SODIUM 100MG CAPSULE PO SCH ×2 (08:35→19:54)
[2022-08-04] MEDS: amLODIPine 5 MG TAB PO SCH (08:35)
[2022-08-04] MEDS: ATORVASTATIN 20 MG TAB PO SCH (19:54)
[2022-08-04] MEDS: QUEtiapine FUMARATE 50MG TAB PO SCH (19:54)
[2022-08-04] MEDS: DONEPEZIL 5 MG TAB PO SCH (19:54)
[2022-08-05 06:00] VITALS: BP 148/87
[2022-08-05] MEDS: amLODIPine 5 MG TAB PO SCH (09:00)
[2022-08-05] MEDS: DOCUSATE SODIUM 100MG CAPSULE PO SCH ×2 (09:00→21:00)
[2022-08-05] MEDS: FOLIC ACID 1MG TAB PO SCH (09:00)
[2022-08-05] MEDS: QUEtiapine FUMARATE 50MG TAB PO SCH (21:00)
[2022-08-05] MEDS: DONEPEZIL 5 MG TAB PO SCH (21:00)
[2022-08-05] MEDS: ATORVASTATIN 20 MG TAB PO SCH (21:00)
[2022-08-06] MEDS: DOCUSATE SODIUM 100MG CAPSULE PO SCH ×2 (08:41→21:00)
[2022-08-06] MEDS: FOLIC ACID 1MG TAB PO SCH (08:42)
[2022-08-06] MEDS: amLODIPine 5 MG TAB PO SCH (08:42)
[2022-08-06] MEDS: ATORVASTATIN 20 MG TAB PO SCH (21:00)
[2022-08-06] MEDS: DONEPEZIL 5 MG TAB PO SCH (21:00)
[2022-08-06] MEDS: QUEtiapine FUMARATE 50MG TAB PO SCH (21:00)
[2022-08-07 06:32] VITALS: BP 150/88
[2022-08-07] MEDS: DOCUSATE SODIUM 100MG CAPSULE PO SCH ×2 (09:00→21:00)
[2022-08-07] MEDS: FOLIC ACID 1MG TAB PO SCH (09:00)
[2022-08-07] MEDS: amLODIPine 5 MG TAB PO SCH (09:00)
[2022-08-07 10:45] VITALS: BP 155/96
[2022-08-07] MEDS: DONEPEZIL 5 MG TAB PO SCH (21:00)
[2022-08-07] MEDS: QUEtiapine FUMARATE 50MG TAB PO SCH (21:00)
[2022-08-07] MEDS: ATORVASTATIN 20 MG TAB PO SCH (21:00)
[2022-08-08 06:00] VITALS: BP 150/68
[2022-08-08] MEDS: amLODIPine 5 MG TAB PO SCH (08:56)
[2022-08-08] MEDS: FOLIC ACID 1MG TAB PO SCH (08:56)
[2022-08-08] MEDS: DOCUSATE SODIUM 100MG CAPSULE PO SCH ×2 (08:56→19:56)
[2022-08-08] MEDS: DONEPEZIL 5 MG TAB PO SCH (19:56)
[2022-08-08] MEDS: ATORVASTATIN 20 MG TAB PO SCH (19:56)
[2022-08-08] MEDS: QUEtiapine FUMARATE 50MG TAB PO SCH (19:57)
[2022-08-09] MEDS: DOCUSATE SODIUM 100MG CAPSULE PO SCH ×2 (09:00→19:38)
[2022-08-09] MEDS: FOLIC ACID 1MG TAB PO SCH (09:00)
[2022-08-09] MEDS: amLODIPine 5 MG TAB PO SCH (09:00)
[2022-08-09] MEDS: ATORVASTATIN 20 MG TAB PO SCH (19:38)
[2022-08-09] MEDS: DONEPEZIL 5 MG TAB PO SCH (19:38)
[2022-08-09] MEDS: QUEtiapine FUMARATE 50MG TAB PO SCH (19:39)
[2022-08-10] MEDS: amLODIPine 5 MG TAB PO SCH (09:00)
[2022-08-10] MEDS: DOCUSATE SODIUM 100MG CAPSULE PO SCH ×2 (09:00→21:00)
[2022-08-10] MEDS: FOLIC ACID 1MG TAB PO SCH (09:00)
[2022-08-10] MEDS: ATORVASTATIN 20 MG TAB PO SCH (21:00)
[2022-08-10] MEDS: DONEPEZIL 5 MG TAB PO SCH (21:00)
[2022-08-10] MEDS: QUEtiapine FUMARATE 50MG TAB PO SCH (21:00)
[2022-08-11 06:00] VITALS: BP 159/79
[2022-08-11] MEDS: amLODIPine 5 MG TAB PO SCH (09:00)
[2022-08-11] MEDS: DOCUSATE SODIUM 100MG CAPSULE PO SCH ×2 (09:00→21:00)
[2022-08-11] MEDS: FOLIC ACID 1MG TAB PO SCH (09:00)
[2022-08-11] MEDS: DONEPEZIL 5 MG TAB PO SCH (21:00)
[2022-08-11] MEDS: ATORVASTATIN 20 MG TAB PO SCH (21:00)
[2022-08-11] MEDS: QUEtiapine FUMARATE 50MG TAB PO SCH (21:00)
[2022-08-12] MEDS: DOCUSATE SODIUM 100MG CAPSULE PO SCH ×2 (09:00→21:00)
[2022-08-12] MEDS: amLODIPine 5 MG TAB PO SCH (09:00)
[2022-08-12] MEDS: FOLIC ACID 1MG TAB PO SCH (09:00)
[2022-08-12] MEDS: QUEtiapine FUMARATE 50MG TAB PO SCH (21:00)
[2022-08-12] MEDS: DONEPEZIL 5 MG TAB PO SCH (21:00)
[2022-08-12] MEDS: ATORVASTATIN 20 MG TAB PO SCH (21:00)
[2022-08-13] MEDS: amLODIPine 5 MG TAB PO SCH (09:00)
[2022-08-13] MEDS: FOLIC ACID 1MG TAB PO SCH (09:00)
[2022-08-13] MEDS: DOCUSATE SODIUM 100MG CAPSULE PO SCH ×2 (09:00→21:00)
[2022-08-13] MEDS: QUEtiapine FUMARATE 50MG TAB PO SCH (21:00)
[2022-08-13] MEDS: ATORVASTATIN 20 MG TAB PO SCH (21:00)
[2022-08-13] MEDS: DONEPEZIL 5 MG TAB PO SCH (21:00)
[2022-08-14] MEDS: DOCUSATE SODIUM 100MG CAPSULE PO SCH ×2 (09:00→21:00)
[2022-08-14] MEDS: amLODIPine 5 MG TAB PO SCH (09:00)
[2022-08-14] MEDS: FOLIC ACID 1MG TAB PO SCH (09:00)
[2022-08-14] MEDS: QUEtiapine FUMARATE 50MG TAB PO SCH (21:00)
[2022-08-14] MEDS: ATORVASTATIN 20 MG TAB PO SCH (21:00)
[2022-08-14] MEDS: DONEPEZIL 5 MG TAB PO SCH (21:00)
[2022-08-15 06:10] VITALS: BP 143/61
[2022-08-15] MEDS: FOLIC ACID 1MG TAB PO SCH (08:48)
[2022-08-15] MEDS: DOCUSATE SODIUM 100MG CAPSULE PO SCH ×2 (08:48→21:00)
[2022-08-15] MEDS: amLODIPine 5 MG TAB PO SCH (08:48)
[2022-08-15] MEDS: DONEPEZIL 5 MG TAB PO SCH (21:00)
[2022-08-15] MEDS: QUEtiapine FUMARATE 50MG TAB PO SCH (21:00)
[2022-08-15] MEDS: ATORVASTATIN 20 MG TAB PO SCH (21:00)
[2022-08-16 06:00] VITALS: BP 101/66
[2022-08-16] MEDS: FOLIC ACID 1MG TAB PO SCH (08:19)
[2022-08-16] MEDS: DOCUSATE SODIUM 100MG CAPSULE PO SCH ×2 (08:19→20:00)
[2022-08-16] MEDS: amLODIPine 5 MG TAB PO SCH (08:19)
[2022-08-16] MEDS: DONEPEZIL 5 MG TAB PO SCH (20:00)
[2022-08-16] MEDS: QUEtiapine FUMARATE 50MG TAB PO SCH (20:00)
[2022-08-16] MEDS: ATORVASTATIN 20 MG TAB PO SCH (20:00)
[2022-08-17] MEDS: FOLIC ACID 1MG TAB PO SCH (09:00)
[2022-08-17] MEDS: amLODIPine 5 MG TAB PO SCH (09:00)
[2022-08-17] MEDS: DOCUSATE SODIUM 100MG CAPSULE PO SCH ×2 (09:00→20:00)
[2022-08-17 09:32] VITALS: BP 142/103
[2022-08-17] MEDS: ATORVASTATIN 20 MG TAB PO SCH (20:00)
[2022-08-17] MEDS: QUEtiapine FUMARATE 50MG TAB PO SCH (20:00)
[2022-08-17] MEDS: DONEPEZIL 5 MG TAB PO SCH (20:00)
[2022-08-18] MEDS: DOCUSATE SODIUM 100MG CAPSULE PO SCH ×2 (08:59→19:38)
[2022-08-18] MEDS: FOLIC ACID 1MG TAB PO SCH (09:00)
[2022-08-18] MEDS: amLODIPine 5 MG TAB PO SCH (09:00)
[2022-08-18] MEDS: DONEPEZIL 5 MG TAB PO SCH (19:38)
[2022-08-18] MEDS: ATORVASTATIN 20 MG TAB PO SCH (19:38)
[2022-08-18] MEDS: QUEtiapine FUMARATE 50MG TAB PO SCH (19:39)
[2022-08-19] MEDS: DOCUSATE SODIUM 100MG CAPSULE PO SCH ×2 (09:00→20:00)
[2022-08-19] MEDS: FOLIC ACID 1MG TAB PO SCH (09:00)
[2022-08-19] MEDS: amLODIPine 5 MG TAB PO SCH (09:00)
[2022-08-19] MEDS: QUEtiapine FUMARATE 50MG TAB PO SCH (20:00)
[2022-08-19] MEDS: ATORVASTATIN 20 MG TAB PO SCH (20:00)
[2022-08-19] MEDS: DONEPEZIL 5 MG TAB PO SCH (20:00)
[2022-08-20] MEDS: FOLIC ACID 1MG TAB PO SCH (09:00)
[2022-08-20] MEDS: DOCUSATE SODIUM 100MG CAPSULE PO SCH ×2 (09:00→20:30)
[2022-08-20] MEDS: amLODIPine 5 MG TAB PO SCH (09:00)
[2022-08-20] MEDS: ATORVASTATIN 20 MG TAB PO SCH (20:30)
[2022-08-20] MEDS: DONEPEZIL 5 MG TAB PO SCH (20:30)
[2022-08-20] MEDS: QUEtiapine FUMARATE 50MG TAB PO SCH (20:30)
[2022-08-21] MEDS: DOCUSATE SODIUM 100MG CAPSULE PO SCH ×2 (09:00→20:04)
[2022-08-21] MEDS: amLODIPine 5 MG TAB PO SCH (09:00)
[2022-08-21] MEDS: FOLIC ACID 1MG TAB PO SCH (09:00)
[2022-08-21] MEDS: ATORVASTATIN 20 MG TAB PO SCH (20:04)
[2022-08-21] MEDS: DONEPEZIL 5 MG TAB PO SCH (20:04)
[2022-08-21] MEDS: QUEtiapine FUMARATE 50MG TAB PO SCH (20:04)
[2022-08-22 05:38] VITALS: BP 148/57
[2022-08-22] MEDS: DOCUSATE SODIUM 100MG CAPSULE PO SCH ×2 (09:00→21:00)
[2022-08-22] MEDS: FOLIC ACID 1MG TAB PO SCH (09:00)
[2022-08-22] MEDS: amLODIPine 5 MG TAB PO SCH (09:00)
[2022-08-22] MEDS: ATORVASTATIN 20 MG TAB PO SCH (21:00)
[2022-08-22] MEDS: QUEtiapine FUMARATE 50MG TAB PO SCH (21:00)
[2022-08-22] MEDS: DONEPEZIL 5 MG TAB PO SCH (21:00)
[2022-08-23 06:17] VITALS: BP 145/56
[2022-08-23] MEDS: DOCUSATE SODIUM 100MG CAPSULE PO SCH ×2 (09:00→21:00)
[2022-08-23] MEDS: amLODIPine 5 MG TAB PO SCH (09:00)
[2022-08-23] MEDS: FOLIC ACID 1MG TAB PO SCH (09:00)
[2022-08-23] MEDS: QUEtiapine FUMARATE 50MG TAB PO SCH (21:00)
[2022-08-23] MEDS: DONEPEZIL 5 MG TAB PO SCH (21:00)
[2022-08-23] MEDS: ATORVASTATIN 20 MG TAB PO SCH (21:00)
[2022-08-24 04:59] VITALS: BP 152/96
[2022-08-24] MEDS: DOCUSATE SODIUM 100MG CAPSULE PO SCH ×2 (09:00→21:00)
[2022-08-24] MEDS: FOLIC ACID 1MG TAB PO SCH (09:00)
[2022-08-24] MEDS: amLODIPine 5 MG TAB PO SCH (09:00)
[2022-08-24] MEDS: DONEPEZIL 5 MG TAB PO SCH (21:00)
[2022-08-24] MEDS: QUEtiapine FUMARATE 50MG TAB PO SCH (21:00)
[2022-08-24] MEDS: ATORVASTATIN 20 MG TAB PO SCH (21:00)
[2022-08-25] MEDS: amLODIPine 5 MG TAB PO SCH (09:00)
[2022-08-25] MEDS: FOLIC ACID 1MG TAB PO SCH (09:00)
[2022-08-25] MEDS: DOCUSATE SODIUM 100MG CAPSULE PO SCH ×2 (09:00→21:00)
[2022-08-25] MEDS: QUEtiapine FUMARATE 50MG TAB PO SCH (21:00)
[2022-08-25] MEDS: DONEPEZIL 5 MG TAB PO SCH (21:00)
[2022-08-25] MEDS: ATORVASTATIN 20 MG TAB PO SCH (21:00)
[2022-08-26 06:00] VITALS: BP 171/69
[2022-08-26] MEDS: amLODIPine 5 MG TAB PO SCH (09:00)
[2022-08-26] MEDS: DOCUSATE SODIUM 100MG CAPSULE PO SCH ×2 (09:00→21:00)
[2022-08-26] MEDS: FOLIC ACID 1MG TAB PO SCH (09:00)
[2022-08-26] MEDS: DONEPEZIL 5 MG TAB PO SCH (21:00)
[2022-08-26] MEDS: ATORVASTATIN 20 MG TAB PO SCH (21:00)
[2022-08-26] MEDS: QUEtiapine FUMARATE 50MG TAB PO SCH (21:00)
[2022-08-27] MEDS: FOLIC ACID 1MG TAB PO SCH (09:00)
[2022-08-27] MEDS: amLODIPine 5 MG TAB PO SCH (09:00)
[2022-08-27] MEDS: DOCUSATE SODIUM 100MG CAPSULE PO SCH ×2 (09:00→21:00)
[2022-08-27] MEDS: DONEPEZIL 5 MG TAB PO SCH (21:00)
[2022-08-27] MEDS: QUEtiapine FUMARATE 50MG TAB PO SCH (21:00)
[2022-08-27] MEDS: ATORVASTATIN 20 MG TAB PO SCH (21:00)
[2022-08-28] MEDS: FOLIC ACID 1MG TAB PO SCH (07:48)
[2022-08-28] MEDS: DOCUSATE SODIUM 100MG CAPSULE PO SCH ×2 (07:48→21:00)
[2022-08-28] MEDS: amLODIPine 5 MG TAB PO SCH (07:49)
[2022-08-28] MEDS: QUEtiapine FUMARATE 50MG TAB PO SCH (21:00)
[2022-08-28] MEDS: DONEPEZIL 5 MG TAB PO SCH (21:00)
[2022-08-28] MEDS: ATORVASTATIN 20 MG TAB PO SCH (21:00)
[2022-08-29 06:00] VITALS: BP 169/90
[2022-08-29] MEDS: DOCUSATE SODIUM 100MG CAPSULE PO SCH ×2 (10:03→21:00)
[2022-08-29] MEDS: amLODIPine 5 MG TAB PO SCH ×2 (10:04)
[2022-08-29] MEDS: FOLIC ACID 1MG TAB PO SCH (10:04)
[2022-08-29] MEDS: QUEtiapine FUMARATE 50MG TAB PO SCH (21:00)
[2022-08-29] MEDS: ATORVASTATIN 20 MG TAB PO SCH (21:00)
[2022-08-29] MEDS: DONEPEZIL 5 MG TAB PO SCH (21:00)
[2022-08-30] MEDS: DOCUSATE SODIUM 100MG CAPSULE PO SCH ×2 (10:17→21:00)
[2022-08-30] MEDS: amLODIPine 5 MG TAB PO SCH ×2 (10:17→10:18)
[2022-08-30] MEDS: FOLIC ACID 1MG TAB PO SCH (10:17)
[2022-08-30] MEDS: DONEPEZIL 5 MG TAB PO SCH (21:00)
[2022-08-30] MEDS: ATORVASTATIN 20 MG TAB PO SCH (21:00)
[2022-08-30] MEDS: QUEtiapine FUMARATE 50MG TAB PO SCH (21:00)
[2022-08-31] MEDS: amLODIPine 5 MG TAB PO SCH ×2 (08:11)
[2022-08-31] MEDS: FOLIC ACID 1MG TAB PO SCH (08:11)
[2022-08-31] MEDS: DOCUSATE SODIUM 100MG CAPSULE PO SCH ×2 (08:11→20:01)
[2022-08-31] MEDS: ATORVASTATIN 20 MG TAB PO SCH (20:01)
[2022-08-31] MEDS: DONEPEZIL 5 MG TAB PO SCH (20:01)
[2022-08-31] MEDS: QUEtiapine FUMARATE 50MG TAB PO SCH (20:01)
[2022-09-01] MEDS: DOCUSATE SODIUM 100MG CAPSULE PO SCH ×2 (08:53→20:41)
[2022-09-01] MEDS: FOLIC ACID 1MG TAB PO SCH (08:54)
[2022-09-01] MEDS: amLODIPine 5 MG TAB PO SCH ×2 (08:54)
[2022-09-01] MEDS: DONEPEZIL 5 MG TAB PO SCH (20:41)
[2022-09-01] MEDS: ATORVASTATIN 20 MG TAB PO SCH (20:41)
[2022-09-01] MEDS: QUEtiapine FUMARATE 50MG TAB PO SCH (20:42)
[2022-09-02 06:00] VITALS: BP 132/78
[2022-09-02] MEDS: FOLIC ACID 1MG TAB PO SCH (09:00)
[2022-09-02] MEDS: DOCUSATE SODIUM 100MG CAPSULE PO SCH ×2 (09:00→21:00)
[2022-09-02] MEDS: amLODIPine 5 MG TAB PO SCH ×2 (09:00)
[2022-09-02] MEDS: QUEtiapine FUMARATE 50MG TAB PO SCH (21:00)
[2022-09-02] MEDS: DONEPEZIL 5 MG TAB PO SCH (21:00)
[2022-09-02] MEDS: ATORVASTATIN 20 MG TAB PO SCH (21:00)
[2022-09-03 06:00] VITALS: BP 168/90
[2022-09-03] MEDS: FOLIC ACID 1MG TAB PO SCH (09:00)
[2022-09-03] MEDS: amLODIPine 5 MG TAB PO SCH ×2 (09:00)
[2022-09-03] MEDS: DOCUSATE SODIUM 100MG CAPSULE PO SCH ×2 (09:00→20:32)
[2022-09-03] MEDS: DONEPEZIL 5 MG TAB PO SCH (20:31)
[2022-09-03] MEDS: ATORVASTATIN 20 MG TAB PO SCH (20:32)
[2022-09-03] MEDS: QUEtiapine FUMARATE 50MG TAB PO SCH (20:32)
[2022-09-04 06:00] VITALS: BP 138/81
[2022-09-04] MEDS: amLODIPine 5 MG TAB PO SCH ×2 (09:00→11:03)
[2022-09-04] MEDS: FOLIC ACID 1MG TAB PO SCH (11:01)
[2022-09-04] MEDS: DOCUSATE SODIUM 100MG CAPSULE PO SCH ×2 (11:02→21:00)
[2022-09-04] MEDS: ATORVASTATIN 20 MG TAB PO SCH (21:00)
[2022-09-04] MEDS: DONEPEZIL 5 MG TAB PO SCH (21:00)
[2022-09-04] MEDS: QUEtiapine FUMARATE 50MG TAB PO SCH (21:00)
[2022-09-05] MEDS: DOCUSATE SODIUM 100MG CAPSULE PO SCH ×2 (09:00→19:47)
[2022-09-05] MEDS: FOLIC ACID 1MG TAB PO SCH ×2 (09:00→19:47)
[2022-09-05] MEDS: amLODIPine 5 MG TAB PO SCH ×2 (09:00)
[2022-09-05] MEDS: DONEPEZIL 5 MG TAB PO SCH (19:47)
[2022-09-05] MEDS: QUEtiapine FUMARATE 50MG TAB PO SCH (19:48)
[2022-09-05] MEDS: ATORVASTATIN 20 MG TAB PO SCH (19:48)
[2022-09-06] MEDS: amLODIPine 5 MG TAB PO SCH ×2 (08:23→08:24)
[2022-09-06] MEDS: ATORVASTATIN 20 MG TAB PO SCH (21:00)
[2022-09-06] MEDS: DOCUSATE SODIUM 100MG CAPSULE PO SCH (21:00)
[2022-09-06] MEDS: DONEPEZIL 5 MG TAB PO SCH (21:00)
[2022-09-06] MEDS: QUEtiapine FUMARATE 50MG TAB PO SCH (21:00)
[2022-09-07] MEDS: amLODIPine 5 MG TAB PO SCH ×2 (09:00)
[2022-09-07] MEDS: DOCUSATE SODIUM 100MG CAPSULE PO SCH ×2 (09:00→20:36)
[2022-09-07] MEDS: FOLIC ACID 1MG TAB PO SCH (09:00)
[2022-09-07] MEDS: ATORVASTATIN 20 MG TAB PO SCH (20:36)
[2022-09-07] MEDS: QUEtiapine FUMARATE 50MG TAB PO SCH (20:36)
[2022-09-07] MEDS: DONEPEZIL 5 MG TAB PO SCH (20:36)
[2022-09-08] MEDS: FOLIC ACID 1MG TAB PO SCH (08:50)
[2022-09-08] MEDS: amLODIPine 5 MG TAB PO SCH ×2 (08:50)
[2022-09-08] MEDS: DOCUSATE SODIUM 100MG CAPSULE PO SCH ×2 (08:50→21:00)
[2022-09-08] MEDS: ATORVASTATIN 20 MG TAB PO SCH (21:00)
[2022-09-08] MEDS: DONEPEZIL 5 MG TAB PO SCH (21:00)
[2022-09-08] MEDS: QUEtiapine FUMARATE 50MG TAB PO SCH (21:00)
[2022-09-09] MEDS: DOCUSATE SODIUM 100MG CAPSULE PO SCH ×2 (09:00→19:48)
[2022-09-09] MEDS: amLODIPine 5 MG TAB PO SCH ×2 (09:00)
[2022-09-09] MEDS: FOLIC ACID 1MG TAB PO SCH (09:00)
[2022-09-09] MEDS: ATORVASTATIN 20 MG TAB PO SCH (19:48)
[2022-09-09] MEDS: DONEPEZIL 5 MG TAB PO SCH (19:48)
[2022-09-09] MEDS: QUEtiapine FUMARATE 50MG TAB PO SCH (19:48)
[2022-09-10 06:00] VITALS: BP 159/91
[2022-09-10] MEDS: amLODIPine 5 MG TAB PO SCH ×2 (09:00)
[2022-09-10] MEDS: DOCUSATE SODIUM 100MG CAPSULE PO SCH ×2 (09:00→20:32)
[2022-09-10] MEDS: FOLIC ACID 1MG TAB PO SCH (09:00)
[2022-09-10] MEDS: DONEPEZIL 5 MG TAB PO SCH (20:32)
[2022-09-10] MEDS: ATORVASTATIN 20 MG TAB PO SCH (20:32)
[2022-09-10] MEDS: QUEtiapine FUMARATE 50MG TAB PO SCH (20:33)
[2022-09-11] MEDS: DOCUSATE SODIUM 100MG CAPSULE PO SCH ×2 (09:00→20:45)
[2022-09-11] MEDS: amLODIPine 5 MG TAB PO SCH ×2 (09:00)
[2022-09-11] MEDS: FOLIC ACID 1MG TAB PO SCH (09:00)
[2022-09-11] MEDS: DONEPEZIL 5 MG TAB PO SCH (20:45)
[2022-09-11] MEDS: ATORVASTATIN 20 MG TAB PO SCH (20:45)
[2022-09-11] MEDS: QUEtiapine FUMARATE 50MG TAB PO SCH (20:45)
[2022-09-12] MEDS: DOCUSATE SODIUM 100MG CAPSULE PO SCH ×2 (10:24→21:00)
[2022-09-12] MEDS: amLODIPine 5 MG TAB PO SCH ×2 (10:24)
[2022-09-12] MEDS: FOLIC ACID 1MG TAB PO SCH (10:24)
[2022-09-12] MEDS: DONEPEZIL 5 MG TAB PO SCH (21:00)
[2022-09-12] MEDS: QUEtiapine FUMARATE 50MG TAB PO SCH (21:00)
[2022-09-12] MEDS: ATORVASTATIN 20 MG TAB PO SCH (21:00)
[2022-09-13 11:30] VITALS: BP 165/91
[2022-09-13] MEDS: DOCUSATE SODIUM 100MG CAPSULE PO SCH ×2 (11:46→22:19)
[2022-09-13] MEDS: FOLIC ACID 1MG TAB PO SCH (11:46)
[2022-09-13] MEDS: amLODIPine 5 MG TAB PO SCH ×2 (11:46→11:47)
[2022-09-13] MEDS: ATORVASTATIN 20 MG TAB PO SCH (22:19)
[2022-09-13] MEDS: DONEPEZIL 5 MG TAB PO SCH (22:19)
[2022-09-13] MEDS: QUEtiapine FUMARATE 50MG TAB PO SCH (22:20)
[2022-09-14 06:00] VITALS: BP 159/96
[2022-09-14] MEDS: DOCUSATE SODIUM 100MG CAPSULE PO SCH ×2 (08:57→21:00)
[2022-09-14] MEDS: amLODIPine 5 MG TAB PO SCH ×2 (08:57)
[2022-09-14] MEDS: FOLIC ACID 1MG TAB PO SCH (08:57)
[2022-09-14] MEDS: ATORVASTATIN 20 MG TAB PO SCH (21:00)
[2022-09-14] MEDS: QUEtiapine FUMARATE 50MG TAB PO SCH (21:00)
[2022-09-14] MEDS: DONEPEZIL 5 MG TAB PO SCH (21:00)
[2022-09-15 04:15] VITALS: BP 160/92
[2022-09-15] MEDS: DOCUSATE SODIUM 100MG CAPSULE PO SCH ×2 (09:00→22:26)
[2022-09-15] MEDS: FOLIC ACID 1MG TAB PO SCH (09:00)
[2022-09-15] MEDS: amLODIPine 5 MG TAB PO SCH ×2 (09:00)
[2022-09-15] MEDS: ATORVASTATIN 20 MG TAB PO SCH (22:26)
[2022-09-15] MEDS: QUEtiapine FUMARATE 50MG TAB PO SCH (22:26)
[2022-09-15] MEDS: DONEPEZIL 5 MG TAB PO SCH (22:26)
[2022-09-16 06:00] VITALS: BP 155/97
[2022-09-16] MEDS: amLODIPine 5 MG TAB PO SCH ×2 (09:00)
[2022-09-16] MEDS: DOCUSATE SODIUM 100MG CAPSULE PO SCH ×2 (09:00→22:39)
[2022-09-16] MEDS: FOLIC ACID 1MG TAB PO SCH (09:00)
[2022-09-16] MEDS: DONEPEZIL 5 MG TAB PO SCH (22:38)
[2022-09-16] MEDS: ATORVASTATIN 20 MG TAB PO SCH (22:39)
[2022-09-16] MEDS: QUEtiapine FUMARATE 50MG TAB PO SCH (22:39)
[2022-09-17 06:00] VITALS: BP 151/84
[2022-09-17] MEDS: amLODIPine 5 MG TAB PO SCH ×2 (09:00)
[2022-09-17] MEDS: DOCUSATE SODIUM 100MG CAPSULE PO SCH ×2 (09:00→21:00)
[2022-09-17] MEDS: FOLIC ACID 1MG TAB PO SCH (09:00)
[2022-09-17] MEDS: QUEtiapine FUMARATE 50MG TAB PO SCH (21:00)
[2022-09-17] MEDS: ATORVASTATIN 20 MG TAB PO SCH (21:00)
[2022-09-17] MEDS: DONEPEZIL 5 MG TAB PO SCH (21:00)
[2022-09-18] MEDS: FOLIC ACID 1MG TAB PO SCH (09:00)
[2022-09-18] MEDS: amLODIPine 5 MG TAB PO SCH (09:00)
[2022-09-18] MEDS: DOCUSATE SODIUM 100MG CAPSULE PO SCH ×2 (09:00→20:56)
[2022-09-18] MEDS: DONEPEZIL 5 MG TAB PO SCH (20:56)
[2022-09-18] MEDS: ATORVASTATIN 20 MG TAB PO SCH (20:56)
[2022-09-18] MEDS: QUEtiapine FUMARATE 50MG TAB PO SCH (20:57)
[2022-09-19] MEDS: DOCUSATE SODIUM 100MG CAPSULE PO SCH ×2 (09:00→20:18)
[2022-09-19] MEDS: FOLIC ACID 1MG TAB PO SCH (09:00)
[2022-09-19] MEDS: amLODIPine 5 MG TAB PO SCH (09:00)
[2022-09-19] MEDS: DONEPEZIL 5 MG TAB PO SCH (20:18)
[2022-09-19] MEDS: QUEtiapine FUMARATE 50MG TAB PO SCH (20:18)
[2022-09-19] MEDS: ATORVASTATIN 20 MG TAB PO SCH (20:18)
[2022-09-20] MEDS: amLODIPine 5 MG TAB PO SCH (08:56)
[2022-09-20] MEDS: DOCUSATE SODIUM 100MG CAPSULE PO SCH ×2 (08:56→21:00)
[2022-09-20] MEDS: FOLIC ACID 1MG TAB PO SCH (08:56)
[2022-09-20] MEDS: QUEtiapine FUMARATE 50MG TAB PO SCH (21:00)
[2022-09-20] MEDS: ATORVASTATIN 20 MG TAB PO SCH (21:00)
[2022-09-20] MEDS: DONEPEZIL 5 MG TAB PO SCH (21:00)
[2022-09-21 06:00] VITALS: BP 161/90
[2022-09-21] MEDS: FOLIC ACID 1MG TAB PO SCH (08:48)
[2022-09-21] MEDS: DOCUSATE SODIUM 100MG CAPSULE PO SCH ×2 (08:48→21:00)
[2022-09-21] MEDS: amLODIPine 5 MG TAB PO SCH (08:49)
[2022-09-21] MEDS: DONEPEZIL 5 MG TAB PO SCH (21:00)
[2022-09-21] MEDS: ATORVASTATIN 20 MG TAB PO SCH (21:00)
[2022-09-21] MEDS: QUEtiapine FUMARATE 50MG TAB PO SCH (21:00)
[2022-09-22 06:00] VITALS: BP 169/91
[2022-09-22] MEDS: amLODIPine 5 MG TAB PO SCH (07:54)
[2022-09-22] MEDS: FOLIC ACID 1MG TAB PO SCH (07:54)
[2022-09-22] MEDS: DOCUSATE SODIUM 100MG CAPSULE PO SCH ×2 (07:54→21:00)
[2022-09-22] MEDS: QUEtiapine FUMARATE 50MG TAB PO SCH (21:00)
[2022-09-22] MEDS: ATORVASTATIN 20 MG TAB PO SCH (21:00)
[2022-09-22] MEDS: DONEPEZIL 5 MG TAB PO SCH (21:00)
[2022-09-23] MEDS: FOLIC ACID 1MG TAB PO SCH (09:00)
[2022-09-23] MEDS: amLODIPine 5 MG TAB PO SCH (09:00)
[2022-09-23] MEDS: DOCUSATE SODIUM 100MG CAPSULE PO SCH ×2 (09:00→21:00)
[2022-09-23] MEDS: DONEPEZIL 5 MG TAB PO SCH (21:00)
[2022-09-23] MEDS: QUEtiapine FUMARATE 50MG TAB PO SCH (21:00)
[2022-09-23] MEDS: ATORVASTATIN 20 MG TAB PO SCH (21:00)
[2022-09-24] MEDS: FOLIC ACID 1MG TAB PO SCH (08:47)
[2022-09-24] MEDS: DOCUSATE SODIUM 100MG CAPSULE PO SCH ×2 (08:47→20:35)
[2022-09-24] MEDS: amLODIPine 5 MG TAB PO SCH (08:47)
[2022-09-24] MEDS: DONEPEZIL 5 MG TAB PO SCH (20:35)
[2022-09-24] MEDS: ATORVASTATIN 20 MG TAB PO SCH (20:36)
[2022-09-24] MEDS: QUEtiapine FUMARATE 50MG TAB PO SCH (20:36)
[2022-09-25] MEDS: amLODIPine 5 MG TAB PO SCH (08:30)
[2022-09-25] MEDS: DOCUSATE SODIUM 100MG CAPSULE PO SCH ×2 (08:30→21:00)
[2022-09-25] MEDS: FOLIC ACID 1MG TAB PO SCH (08:30)
[2022-09-25] MEDS: DONEPEZIL 5 MG TAB PO SCH (21:00)
[2022-09-25] MEDS: QUEtiapine FUMARATE 50MG TAB PO SCH (21:00)
[2022-09-25] MEDS: ATORVASTATIN 20 MG TAB PO SCH (21:00)
[2022-09-26 07:40] VITALS: BP 108/74
[2022-09-26] MEDS: amLODIPine 5 MG TAB PO SCH (09:00)
[2022-09-26] MEDS: FOLIC ACID 1MG TAB PO SCH (09:00)
[2022-09-26] MEDS: DOCUSATE SODIUM 100MG CAPSULE PO SCH ×2 (09:00→20:32)
[2022-09-26] MEDS: DONEPEZIL 5 MG TAB PO SCH (20:32)
[2022-09-26] MEDS: ATORVASTATIN 20 MG TAB PO SCH (20:33)
[2022-09-26] MEDS: QUEtiapine FUMARATE 50MG TAB PO SCH (20:33)
[2022-09-27 06:00] VITALS: BP 145/78
[2022-09-27] MEDS: DOCUSATE SODIUM 100MG CAPSULE PO SCH ×2 (08:53→20:00)
[2022-09-27] MEDS: amLODIPine 5 MG TAB PO SCH (08:55)
[2022-09-27] MEDS: FOLIC ACID 1MG TAB PO SCH (08:55)
[2022-09-27] MEDS: QUEtiapine FUMARATE 50MG TAB PO SCH (20:00)
[2022-09-27] MEDS: DONEPEZIL 5 MG TAB PO SCH (20:00)
[2022-09-27] MEDS: ATORVASTATIN 20 MG TAB PO SCH (20:00)
[2022-09-28] MEDS: DOCUSATE SODIUM 100MG CAPSULE PO SCH ×2 (09:00→20:00)
[2022-09-28] MEDS: FOLIC ACID 1MG TAB PO SCH (09:00)
[2022-09-28] MEDS: amLODIPine 5 MG TAB PO SCH (09:00)
[2022-09-28] MEDS: DONEPEZIL 5 MG TAB PO SCH (20:00)
[2022-09-28] MEDS: ATORVASTATIN 20 MG TAB PO SCH (20:00)
[2022-09-28] MEDS: QUEtiapine FUMARATE 50MG TAB PO SCH (20:00)
[2022-09-29 06:00] VITALS: BP 154/83
[2022-09-29] MEDS: DOCUSATE SODIUM 100MG CAPSULE PO SCH ×2 (08:08→21:00)
[2022-09-29] MEDS: FOLIC ACID 1MG TAB PO SCH (08:08)
[2022-09-29] MEDS: amLODIPine 5 MG TAB PO SCH (08:09)
[2022-09-29] MEDS: QUEtiapine FUMARATE 50MG TAB PO SCH (21:00)
[2022-09-29] MEDS: DONEPEZIL 5 MG TAB PO SCH (21:00)
[2022-09-29] MEDS: ATORVASTATIN 20 MG TAB PO SCH (21:00)
[2022-09-30] MEDS: amLODIPine 5 MG TAB PO SCH (09:00)
[2022-09-30] MEDS: FOLIC ACID 1MG TAB PO SCH (09:00)
[2022-09-30] MEDS: DOCUSATE SODIUM 100MG CAPSULE PO SCH ×2 (09:00→20:00)
[2022-09-30] MEDS: QUEtiapine FUMARATE 50MG TAB PO SCH (20:00)
[2022-09-30] MEDS: ATORVASTATIN 20 MG TAB PO SCH (20:00)
[2022-09-30] MEDS: DONEPEZIL 5 MG TAB PO SCH (20:00)
[2022-10-01 06:00] VITALS: BP 165/95
[2022-10-01] MEDS: amLODIPine 5 MG TAB PO SCH (08:56)
[2022-10-01] MEDS: FOLIC ACID 1MG TAB PO SCH (08:56)
[2022-10-01] MEDS: DOCUSATE SODIUM 100MG CAPSULE PO SCH ×2 (08:56→20:00)
[2022-10-01] MEDS: DONEPEZIL 5 MG TAB PO SCH (20:00)
[2022-10-01] MEDS: ATORVASTATIN 20 MG TAB PO SCH (20:00)
[2022-10-01] MEDS: QUEtiapine FUMARATE 50MG TAB PO SCH (20:00)
[2022-10-02 06:00] VITALS: BP 172/85
[2022-10-02] MEDS: FOLIC ACID 1MG TAB PO SCH (09:00)
[2022-10-02] MEDS: amLODIPine 5 MG TAB PO SCH (09:00)
[2022-10-02] MEDS: DOCUSATE SODIUM 100MG CAPSULE PO SCH ×2 (09:00→20:00)
[2022-10-02] MEDS: ATORVASTATIN 20 MG TAB PO SCH (20:00)
[2022-10-02] MEDS: QUEtiapine FUMARATE 50MG TAB PO SCH (20:00)
[2022-10-02] MEDS: DONEPEZIL 5 MG TAB PO SCH (20:00)
[2022-10-03 06:00] VITALS: BP 163/85
[2022-10-03] MEDS: FOLIC ACID 1MG TAB PO SCH (09:00)
[2022-10-03] MEDS: DOCUSATE SODIUM 100MG CAPSULE PO SCH ×2 (09:00→21:00)
[2022-10-03] MEDS: amLODIPine 5 MG TAB PO SCH (09:00)
[2022-10-03] MEDS: DONEPEZIL 5 MG TAB PO SCH (21:00)
[2022-10-03] MEDS: QUEtiapine FUMARATE 50MG TAB PO SCH (21:00)
[2022-10-03] MEDS: ATORVASTATIN 20 MG TAB PO SCH (21:00)
[2022-10-04 08:55] VITALS: BP 157/78
[2022-10-04 09:00] VITALS: BP 157/78
[2022-10-04] MEDS: FOLIC ACID 1MG TAB PO SCH (09:00)
[2022-10-04] MEDS: amLODIPine 5 MG TAB PO SCH (09:00)
[2022-10-04] MEDS: DOCUSATE SODIUM 100MG CAPSULE PO SCH ×2 (09:00→20:32)
[2022-10-04] MEDS: DONEPEZIL 5 MG TAB PO SCH (20:32)
[2022-10-04] MEDS: QUEtiapine FUMARATE 50MG TAB PO SCH (20:32)
[2022-10-04] MEDS: ATORVASTATIN 20 MG TAB PO SCH (20:32)
[2022-10-05] MEDS: FOLIC ACID 1MG TAB PO SCH (09:00)
[2022-10-05] MEDS: DOCUSATE SODIUM 100MG CAPSULE PO SCH ×2 (09:00→20:37)
[2022-10-05] MEDS: amLODIPine 5 MG TAB PO SCH (09:00)
[2022-10-05] MEDS: DONEPEZIL 5 MG TAB PO SCH (20:37)
[2022-10-05] MEDS: ATORVASTATIN 20 MG TAB PO SCH (20:38)
[2022-10-05] MEDS: QUEtiapine FUMARATE 50MG TAB PO SCH (20:38)
[2022-10-06] MEDS: amLODIPine 5 MG TAB PO SCH (09:30)
[2022-10-06] MEDS: FOLIC ACID 1MG TAB PO SCH (09:30)
[2022-10-06] MEDS: DOCUSATE SODIUM 100MG CAPSULE PO SCH ×2 (09:30→20:30)
[2022-10-06] MEDS: DONEPEZIL 5 MG TAB PO SCH (20:30)
[2022-10-06] MEDS: ATORVASTATIN 20 MG TAB PO SCH (20:30)
[2022-10-06] MEDS: QUEtiapine FUMARATE 50MG TAB PO SCH (20:30)
[2022-10-07] MEDS: DOCUSATE SODIUM 100MG CAPSULE PO SCH ×2 (10:26→21:00)
[2022-10-07] MEDS: FOLIC ACID 1MG TAB PO SCH (10:27)
[2022-10-07] MEDS: amLODIPine 5 MG TAB PO SCH (10:27)
[2022-10-07] MEDS: QUEtiapine FUMARATE 50MG TAB PO SCH (21:00)
[2022-10-07] MEDS: DONEPEZIL 5 MG TAB PO SCH (21:00)
[2022-10-07] MEDS: ATORVASTATIN 20 MG TAB PO SCH (21:00)
[2022-10-08] MEDS: FOLIC ACID 1MG TAB PO SCH (09:00)
[2022-10-08] MEDS: DOCUSATE SODIUM 100MG CAPSULE PO SCH ×2 (09:00→21:00)
[2022-10-08] MEDS: amLODIPine 5 MG TAB PO SCH (09:00)
[2022-10-08] MEDS: ATORVASTATIN 20 MG TAB PO SCH (21:00)
[2022-10-08] MEDS: QUEtiapine FUMARATE 50MG TAB PO SCH (21:00)
[2022-10-08] MEDS: DONEPEZIL 5 MG TAB PO SCH (21:00)
[2022-10-09] MEDS: DOCUSATE SODIUM 100MG CAPSULE PO SCH ×2 (08:34→21:00)
[2022-10-09] MEDS: amLODIPine 5 MG TAB PO SCH (08:35)
[2022-10-09] MEDS: FOLIC ACID 1MG TAB PO SCH (08:35)
[2022-10-09] MEDS: DONEPEZIL 5 MG TAB PO SCH (21:00)
[2022-10-09] MEDS: ATORVASTATIN 20 MG TAB PO SCH (21:00)
[2022-10-09] MEDS: QUEtiapine FUMARATE 50MG TAB PO SCH (21:00)
[2022-10-10] MEDS: FOLIC ACID 1MG TAB PO SCH (08:23)
[2022-10-10] MEDS: DOCUSATE SODIUM 100MG CAPSULE PO SCH ×2 (08:23→21:00)
[2022-10-10] MEDS: amLODIPine 5 MG TAB PO SCH (08:23)
[2022-10-10] MEDS: QUEtiapine FUMARATE 50MG TAB PO SCH (21:00)
[2022-10-10] MEDS: DONEPEZIL 5 MG TAB PO SCH (21:00)
[2022-10-10] MEDS: ATORVASTATIN 20 MG TAB PO SCH (21:00)
[2022-10-11] MEDS: FOLIC ACID 1MG TAB PO SCH (08:00)
[2022-10-11] MEDS: DOCUSATE SODIUM 100MG CAPSULE PO SCH ×2 (08:00→20:10)
[2022-10-11] MEDS: amLODIPine 5 MG TAB PO SCH (08:01)
[2022-10-11] MEDS: ATORVASTATIN 20 MG TAB PO SCH (20:10)
[2022-10-11] MEDS: DONEPEZIL 5 MG TAB PO SCH (20:10)
[2022-10-11] MEDS: QUEtiapine FUMARATE 50MG TAB PO SCH (20:10)
[2022-10-12] MEDS: DOCUSATE SODIUM 100MG CAPSULE PO SCH ×2 (08:20→20:52)
[2022-10-12] MEDS: FOLIC ACID 1MG TAB PO SCH (08:21)
[2022-10-12] MEDS: amLODIPine 5 MG TAB PO SCH (08:21)
[2022-10-12] MEDS: DONEPEZIL 5 MG TAB PO SCH (20:52)
[2022-10-12] MEDS: QUEtiapine FUMARATE 50MG TAB PO SCH (20:53)
[2022-10-12] MEDS: ATORVASTATIN 20 MG TAB PO SCH (20:53)
[2022-10-13] MEDS: DOCUSATE SODIUM 100MG CAPSULE PO SCH ×2 (09:00→21:00)
[2022-10-13] MEDS: FOLIC ACID 1MG TAB PO SCH (09:00)
[2022-10-13] MEDS: amLODIPine 5 MG TAB PO SCH (09:00)
[2022-10-13] MEDS: QUEtiapine FUMARATE 50MG TAB PO SCH (21:00)
[2022-10-13] MEDS: ATORVASTATIN 20 MG TAB PO SCH (21:00)
[2022-10-13] MEDS: DONEPEZIL 5 MG TAB PO SCH (21:00)
[2022-10-14] MEDS: FOLIC ACID 1MG TAB PO SCH (08:00)
[2022-10-14] MEDS: amLODIPine 5 MG TAB PO SCH (08:00)
[2022-10-14] MEDS: DOCUSATE SODIUM 100MG CAPSULE PO SCH ×2 (08:00→20:05)
[2022-10-14] MEDS: QUEtiapine FUMARATE 50MG TAB PO SCH (20:05)
[2022-10-14] MEDS: DONEPEZIL 5 MG TAB PO SCH (20:05)
[2022-10-14] MEDS: ATORVASTATIN 20 MG TAB PO SCH (20:05)
[2022-10-15] MEDS: DOCUSATE SODIUM 100MG CAPSULE PO SCH ×2 (08:25→20:52)
[2022-10-15] MEDS: FOLIC ACID 1MG TAB PO SCH (08:25)
[2022-10-15] MEDS: amLODIPine 5 MG TAB PO SCH (08:26)
[2022-10-15] MEDS: QUEtiapine FUMARATE 50MG TAB PO SCH (20:52)
[2022-10-15] MEDS: ATORVASTATIN 20 MG TAB PO SCH (20:52)
[2022-10-15] MEDS: DONEPEZIL 5 MG TAB PO SCH (20:52)
[2022-10-16 07:18] VITALS: BP 129/88
[2022-10-16] MEDS: DOCUSATE SODIUM 100MG CAPSULE PO SCH ×2 (08:20→20:05)
[2022-10-16] MEDS: FOLIC ACID 1MG TAB PO SCH (08:20)
[2022-10-16] MEDS: amLODIPine 5 MG TAB PO SCH (08:20)
[2022-10-16] MEDS: QUEtiapine FUMARATE 50MG TAB PO SCH (20:05)
[2022-10-16] MEDS: ATORVASTATIN 20 MG TAB PO SCH (20:05)
[2022-10-16] MEDS: DONEPEZIL 5 MG TAB PO SCH (20:05)
[2022-10-17] MEDS: DOCUSATE SODIUM 100MG CAPSULE PO SCH ×2 (07:58→21:00)
[2022-10-17] MEDS: FOLIC ACID 1MG TAB PO SCH (07:58)
[2022-10-17] MEDS: amLODIPine 5 MG TAB PO SCH (07:58)
[2022-10-17] MEDS: ATORVASTATIN 20 MG TAB PO SCH (21:00)
[2022-10-17] MEDS: QUEtiapine FUMARATE 50MG TAB PO SCH (21:00)
[2022-10-17] MEDS: DONEPEZIL 5 MG TAB PO SCH (21:00)
[2022-10-18] MEDS: DOCUSATE SODIUM 100MG CAPSULE PO SCH ×2 (09:00→21:00)
[2022-10-18] MEDS: FOLIC ACID 1MG TAB PO SCH (09:00)
[2022-10-18] MEDS: amLODIPine 5 MG TAB PO SCH (09:00)
[2022-10-18] MEDS: ATORVASTATIN 20 MG TAB PO SCH (21:00)
[2022-10-18] MEDS: QUEtiapine FUMARATE 50MG TAB PO SCH (21:00)
[2022-10-18] MEDS: DONEPEZIL 5 MG TAB PO SCH (21:00)
[2022-10-19] MEDS: DOCUSATE SODIUM 100MG CAPSULE PO SCH ×2 (08:46→20:34)
[2022-10-19] MEDS: FOLIC ACID 1MG TAB PO SCH (08:46)
[2022-10-19] MEDS: amLODIPine 5 MG TAB PO SCH (08:47)
[2022-10-19] MEDS: DONEPEZIL 5 MG TAB PO SCH (20:34)
[2022-10-19] MEDS: ATORVASTATIN 20 MG TAB PO SCH (20:35)
[2022-10-19] MEDS: QUEtiapine FUMARATE 50MG TAB PO SCH (20:35)
[2022-10-20] MEDS: DOCUSATE SODIUM 100MG CAPSULE PO SCH ×2 (08:36→21:00)
[2022-10-20] MEDS: FOLIC ACID 1MG TAB PO SCH ×2 (08:36→21:00)
[2022-10-20] MEDS: amLODIPine 5 MG TAB PO SCH (08:36)
[2022-10-20] MEDS: ATORVASTATIN 20 MG TAB PO SCH (21:00)
[2022-10-20] MEDS: DONEPEZIL 5 MG TAB PO SCH (21:00)
[2022-10-20] MEDS: QUEtiapine FUMARATE 50MG TAB PO SCH (21:00)
[2022-10-21] MEDS: DOCUSATE SODIUM 100MG CAPSULE PO SCH ×2 (09:00→20:13)
[2022-10-21] MEDS: amLODIPine 5 MG TAB PO SCH (09:00)
[2022-10-21] MEDS ORDERED: OLANZapine INTRAMUSCULAR 10MG VIAL IM PRN (10:05)
[2022-10-21] MEDS: DONEPEZIL 5 MG TAB PO SCH (20:13)
[2022-10-21] MEDS: QUEtiapine FUMARATE 50MG TAB PO SCH (20:13)
[2022-10-21] MEDS: ATORVASTATIN 20 MG TAB PO SCH (20:13)
[2022-10-22 06:00] VITALS: BP 133/76
[2022-10-22] MEDS: DOCUSATE SODIUM 100MG CAPSULE PO SCH ×2 (09:00→21:00)
[2022-10-22] MEDS: amLODIPine 5 MG TAB PO SCH (09:00)
[2022-10-22] MEDS: FOLIC ACID 1MG TAB PO SCH (09:00)
[2022-10-22] MEDS: DONEPEZIL 5 MG TAB PO SCH (21:00)
[2022-10-22] MEDS: ATORVASTATIN 20 MG TAB PO SCH (21:00)
[2022-10-22] MEDS: QUEtiapine FUMARATE 50MG TAB PO SCH (21:00)
[2022-10-23] MEDS: DOCUSATE SODIUM 100MG CAPSULE PO SCH ×2 (08:19→19:54)
[2022-10-23] MEDS: FOLIC ACID 1MG TAB PO SCH (08:20)
[2022-10-23] MEDS: amLODIPine 5 MG TAB PO SCH (08:20)
[2022-10-23] MEDS: DONEPEZIL 5 MG TAB PO SCH (19:54)
[2022-10-23] MEDS: ATORVASTATIN 20 MG TAB PO SCH (19:54)
[2022-10-23] MEDS: QUEtiapine FUMARATE 50MG TAB PO SCH (19:54)
[2022-10-24] MEDS: DOCUSATE SODIUM 100MG CAPSULE PO SCH ×2 (08:14→20:45)
[2022-10-24] MEDS: amLODIPine 5 MG TAB PO SCH (08:14)
[2022-10-24] MEDS: FOLIC ACID 1MG TAB PO SCH (08:14)
[2022-10-24] MEDS: DONEPEZIL 5 MG TAB PO SCH (20:45)
[2022-10-24] MEDS: ATORVASTATIN 20 MG TAB PO SCH (20:45)
[2022-10-24] MEDS: QUEtiapine FUMARATE 50MG TAB PO SCH (20:45)
[2022-10-25] MEDS: amLODIPine 5 MG TAB PO SCH (08:34)
[2022-10-25] MEDS: DOCUSATE SODIUM 100MG CAPSULE PO SCH ×2 (08:34→20:40)
[2022-10-25] MEDS: FOLIC ACID 1MG TAB PO SCH (08:34)
[2022-10-25] MEDS: QUEtiapine FUMARATE 50MG TAB PO SCH (20:40)
[2022-10-25] MEDS: DONEPEZIL 5 MG TAB PO SCH (20:40)
[2022-10-25] MEDS: ATORVASTATIN 20 MG TAB PO SCH (20:40)
[2022-10-26] MEDS: FOLIC ACID 1MG TAB PO SCH (09:00)
[2022-10-26] MEDS: DOCUSATE SODIUM 100MG CAPSULE PO SCH ×2 (09:00→20:52)
[2022-10-26] MEDS: amLODIPine 5 MG TAB PO SCH (09:00)
[2022-10-26] MEDS: DONEPEZIL 5 MG TAB PO SCH (20:51)
[2022-10-26] MEDS: ATORVASTATIN 20 MG TAB PO SCH (20:52)
[2022-10-26] MEDS: QUEtiapine FUMARATE 50MG TAB PO SCH (20:52)
[2022-10-27] MEDS: FOLIC ACID 1MG TAB PO SCH (08:11)
[2022-10-27] MEDS: DOCUSATE SODIUM 100MG CAPSULE PO SCH (08:11)
[2022-10-27] MEDS: amLODIPine 5 MG TAB PO SCH (08:11)
== END 2022-10-27 10:30 | DRG 884 ==
LOC: M ED 15:55 → M ED INP 15:56 → UNDOADMOB 06-27 00:31 → M ED INP 06-27 00:31 → INTOOBSV 06-27 00:31 → OBSVTOIN 06-27 08:51 → ENRESERV 06-27 14:52 → M MSPAV 06-27 15:46
PROVIDERS: ADMIT Internal Medicine; ATTEND Internal Medicine Nephrology
DX: F03.C18 Unspecified dementia, severe, with other behavioral disturbance (principal); U07.1 COVID-19; N39.0 Urinary tract infection, site not specified; R31.9 Hematuria, unspecified; N18.30 Chronic kidney disease, stage 3 unspecified; I12.9 Hypertensive chronic kidney disease with stage 1 through stage 4 chronic kidney disease, or unspecified chronic kidney disease; Z79.899 Other long term (current) drug therapy; E78.5 Hyperlipidemia, unspecified; Z66 Do not resuscitate; R26.89 Other abnormalities of gait and mobility; B96.1 Klebsiella pneumoniae [K. pneumoniae] as the cause of diseases classified elsewhere; Z74.2 Need for assistance at home and no other household member able to render care

== ENCOUNTER → 2023-01-20 | Outpatient (REF) | payer MEDICARE, MEDICAID, OTHER ==
[~2023-01-20] MED LIST changes: +QUET50TA4 PO; +VITA500T40 PO; +med rec comment
== END ==
LOC: SKLAB6 07:37
PROVIDERS: ATTEND Internal Medicine
DX: Z53.8 Procedure and treatment not carried out for other reasons (principal)

== ENCOUNTER → 2023-02-06 | Outpatient (REF) | payer MEDICARE, MEDICAID, OTHER | LOC: SKLAB6 13:52 | PROVIDERS: ATTEND Internal Medicine | DX: Z53.8 Procedure and treatment not carried out for other reasons (principal) ==

== ENCOUNTER → 2023-02-07 | Outpatient (REF) | payer MEDICARE, MEDICAID, OTHER | LOC: SKLAB6 12:44 | PROVIDERS: ATTEND Internal Medicine | DX: Z53.8 Procedure and treatment not carried out for other reasons (principal) ==

== ENCOUNTER → 2023-03-09 | Outpatient (REF) | payer MEDICARE, MEDICAID, OTHER ==
[2023-03-09 15:11] LABS: HEMATOCRIT 37.1 % (36.0-47.0); MEAN CORPUSCULAR HEMOGLOBIN 24.9 pg (27.0-33.0); MEAN CORPUSCULAR HGB CONC 29.6 g/dl (32.0-36.5); MEAN CORPUSCULAR VOLUME 83.9 fl (80.0-96.0); PLATELET COUNT, AUTOMATED 230 10^3/uL (150-450); RED BLOOD COUNT 4.42 10^6/uL (4.00-5.40); WHITE BLOOD COUNT 8.1 10^3/uL (4.0-10.0)
[2023-03-09 15:50] LABS: TOTAL 25(OH) VITAMIN D 17.2 NG/ML (20.0-100.0)
[2023-03-09 15:56] LABS: ALBUMIN 2.5 G/DL (3.2-5.2); ALKALINE PHOSPHATASE 119 U/L (46-116); ALT/SGPT < 9 U/L (7.0-40); AST/SGOT < 8 U/L (<34); BILIRUBIN,TOTAL 0.6 MG/DL (0.3-1.2); BLOOD UREA NITROGEN 25 MG/DL (9-23); CALCIUM LEVEL 8.2 MG/DL (8.3-10.6); CARBON DIOXIDE LEVEL 30 MMOL/L (20-31); CHLORIDE LEVEL 107 MMOL/L (98-107); CHOLESTEROL LEVEL 76 MG/DL (<200); CHOLESTEROL RISK RATIO 2.31 (<5); CREATININE FOR GFR 1.82 MG/DL (0.55-1.30); GLOMERULAR FILTRATION RATE 28.2 (>32); GLUCOSE, FASTING 107 MG/DL (74-106); HDL CHOLESTEROL 32.9 MG/DL (>40); LDL CHOLESTEROL 26.9 MG/DL (<100); NON-HDL-C 43.1 MG/DL; PHOSPHORUS LEVEL 3.6 MG/DL (2.4-5.1); POTASSIUM SERUM 3.7 MMOL/L (3.5-5.1); PTH INTACT 228.7 PG/ML (18.5-88.0); SODIUM LEVEL 142 MMOL/L (136-145); TOTAL PROTEIN 6.2 G/DL (5.7-8.2); TRIGLYCERIDES LEVEL 81 MG/DL (<150)
== END ==
LOC: SKLAB6 14:04
PROVIDERS: ATTEND Internal Medicine
DX: N18.9 Chronic kidney disease, unspecified (principal); Z79.899 Other long term (current) drug therapy

== ENCOUNTER → 2023-03-31 | Outpatient (REF) | LOC: SKLAB4 14:07 | PROVIDERS: ATTEND Internal Medicine | DX: N18.9 Chronic kidney disease, unspecified (principal); Z53.8 Procedure and treatment not carried out for other reasons ==

== ENCOUNTER → 2023-06-28 | Outpatient (REF) | payer MEDICARE, MEDICAID, OTHER ==
[2023-06-28 07:17] LABS: HEMATOCRIT 33.1 % (36.0-47.0); HEMOGLOBIN 10.5 g/dl (12.0-15.5); MEAN CORPUSCULAR HEMOGLOBIN 27.8 pg (27.0-33.0); MEAN CORPUSCULAR HGB CONC 31.7 g/dl (32.0-36.5); MEAN CORPUSCULAR VOLUME 87.6 fl (80.0-96.0); PLATELET COUNT, AUTOMATED 143 10^3/uL (150-450); RED BLOOD COUNT 3.78 10^6/uL (4.00-5.40); WHITE BLOOD COUNT 11.7 10^3/uL (4.0-10.0)
[2023-06-28 07:50] LABS: ALBUMIN 1.1 G/DL (3.2-5.2); BILIRUBIN,TOTAL 0.4 MG/DL (0.3-1.2); CALCIUM LEVEL 6.9 MG/DL (8.3-10.6); CREATININE FOR GFR 1.88 MG/DL (0.55-1.30); GLOMERULAR FILTRATION RATE 27.1 (>32); POTASSIUM SERUM 3.6 MMOL/L (3.5-5.1); TOTAL PROTEIN 4.6 G/DL (5.7-8.2)
== END ==
LOC: SKLAB4 08:00
PROVIDERS: ATTEND Nurse Practitioner Adult Health
DX: N18.9 Chronic kidney disease, unspecified (principal)